=== PATIENT | female | born 1950 | race Caucasian/White ===

== ENCOUNTER 2016-09-03 06:30 | Inpatient (IN) | payer OTHER, MEDICARE ==
[~2016-09-03] VITALS: Ht 157.5 cm; Wt 76.1 kg
[~2016-09-03 06:30] MED LIST: ALPRAZOLAM0.25 M2 PO; AMBIEN10 MG PO; CARISOPRODOL350 MG PO; CYCLOBENZAPRINE10 MG PO; FLEXERIL5 MG PO; FOLIC ACID0.4 MG PO; GABAPENTIN300 MG PO; MAGNESIUM27 MG PO; METOPROLOL TART25 MG PO; NEURONTIN300 MG PO; NEURONTIN600 MG PO; REQUIP0.25 MG PO; ROPINIROLE HC0.25 MG PO; TRAMADOL HCL50 MG PO; TYLENOL REGULA325 MG PO; VITAMIN B12-FO1 EACH PO; XANAX0.25 MG PO; ZOLPIDEM TARTRAT5 MG PO
[2016-09-03 07:01] VITALS: BP 128/71
[2016-09-03 08:14] LABS: AMPHETAMINES QUANT VALUE 0 NG/ML; BARBITUATES QUANT VALUE 0 NG/ML; BENZODIAZEPINES, URINE SCREEN POSITIVE (200 ng/mL); MARIJUANA QUANT VALUE 0 NG/ML; OPIATES QUANTITATIVE VALUE 0 NG/ML; PHENCYCLIDINE QUANT VALUE 0 NG/ML
[2016-09-03 14:13] LABS: HEMATOCRIT 29.1 % (36.0-46.0); MCHC 31.3 G/DL (30.0-36.0); MCV 105.4 FL (83-99); RBC DIS.WIDTH-CV 27.3 % (11.8-14.6); RBC DIS.WIDTH-SD 101.4 % (39-53); RED BLOOD COUNT 2.76 M/uL (3.80-5.20)
[2016-09-03 14:54] VITALS: BP 129/62
[2016-09-03 15:00] LABS: PLATELET COUNT 112 K/uL (156-360)
[2016-09-03 19:12] VITALS: BP 137/65
[2016-09-03 23:31] VITALS: BP 142/68
[2016-09-04 03:46] VITALS: BP 150/71
[2016-09-04 07:49] LABS: HEMATOCRIT 29.3 % (36.0-46.0); MCH 32.1 PG (29.0-34.0); MCHC 30.7 G/DL (30.0-36.0); MCV 104.6 FL (83-99); RBC DIS.WIDTH-CV 27.9 % (11.8-14.6); RBC DIS.WIDTH-SD 102.7 % (39-53)
[2016-09-04 07:50] VITALS: BP 146/65
[2016-09-04 07:52] LABS: WHITE BLOOD COUNT 22.8 K/uL (4.1-10.2)
[2016-09-04 08:14] LABS: CORRECTED WBC COUNT 18.5 K/MM^3 (4.0-12.0)
[2016-09-04 08:15] LABS: PLATELET COUNT 166 K/uL (156-360)
[2016-09-04 15:09] VITALS: BP 140/66
[2016-09-04 19:33] VITALS: BP 151/65
[2016-09-04 23:28] VITALS: BP 171/80
[2016-09-05 03:53] VITALS: BP 165/72
[2016-09-05 07:39] VITALS: BP 174/83
[2016-09-05 08:08] LABS: HEMATOCRIT 29.9 % (36.0-46.0); MCHC 31.1 G/DL (30.0-36.0); RBC DIS.WIDTH-CV 27.2 % (11.8-14.6); RED BLOOD COUNT 2.82 M/uL (3.80-5.20); WHITE BLOOD COUNT 22.7 K/uL (4.1-10.2)
[2016-09-05 08:13] VITALS: BP 159/74
[2016-09-05 08:18] LABS: PLATELET COUNT 163 K/uL (156-360)
[2016-09-05 12:06] VITALS: BP 164/77
[2016-09-05 16:05] VITALS: BP 152/80
[2016-09-05 20:00] VITALS: BP 156/75
[2016-09-06] VITALS (11 sets, daily range): BP systolic 125–175; BP diastolic 73–94
[2016-09-06 07:11] LABS: ANION GAP 7 MEQ/L (2-14); CHLORIDE 101 MEQ/L (99-109); GFR ESTIMATE (CALCULATED) > 59 mL/min/; GLUCOSE 109 mg/dL (70-99); POTASSIUM 3.9 MEQ/L (3.7-5.4); SAMPLE HEMOLYSIS CHECK 0; SAMPLE ICTERIC CHECK 0; SAMPLE LIPEMIA CHECK 0; SODIUM 138 MEQ/L (136-147); UREA NITROGEN (BUN) 5 mg/dL (9-23)
[2016-09-06 07:22] LABS: HEMATOCRIT 28.8 % (36.0-46.0); MCH 32.2 PG (29.0-34.0); MCHC 30.6 G/DL (30.0-36.0); MCV 105.5 FL (83-99); RBC DIS.WIDTH-SD 99.8 % (39-53); RED BLOOD COUNT 2.73 M/uL (3.80-5.20); WHITE BLOOD COUNT 20.1 K/uL (4.1-10.2)
[2016-09-06 07:40] LABS: PLATELET COUNT 169 K/uL (156-360)
[2016-09-06 10:34] LABS: HEMATOCRIT 31.3 % (36.0-46.0); MCV 107.6 FL (83-99)
[2016-09-06 10:58] LABS: TROP-I INTERPRETATION NEGATIVE; TROPONIN-I 0.01 ng/mL (0.0-0.30)
[2016-09-06 18:14] LABS: BASE EXCESS 5.5 mEq/L (-3 to +3); BICARBONATE 30.5 mEq/L (22-26); CARBOXY HGB 2.5 % (0-5); COMMENTS - BLOOD GASES AC+; DEVICE NASAL CANNULA; O2 FLOW 3.5 L/MIN; PCO2 46 mm Hg (35-45); PO2 61 mm Hg (80-100); SITE LR; TOTAL RESP RATE 24 resp/min; pH 7.43 (7.35-7.45)
[2016-09-07] VITALS (16 sets, daily range): BP systolic 90–147; BP diastolic 42–72
[2016-09-07 02:32] LABS: BASE EXCESS 8.2 mEq/L (-3 to +3); BICARBONATE 32.8 mEq/L (22-26); CARBOXY HGB 2.4 % (0-5); PCO2 45 mm Hg (35-45); PO2 70 mm Hg (80-100); pH 7.47 (7.35-7.45)
[2016-09-07 02:33] LABS: COMMENTS - BLOOD GASES C+A+; DEVICE VENTI MASK; FI02 50 %; O2 FLOW 12 L/MIN; SITE RR; TOTAL RESP RATE 26 resp/min
[2016-09-07 03:06] LABS: TROP-I INTERPRETATION NEGATIVE; TROPONIN-I 0.16 ng/mL (0.0-0.30)
[2016-09-07 03:35] LABS: METH RESISTANT S AUREUS PCR NEGATIVE (NEGATIVE)
[2016-09-07 03:43] LABS: PROBE CHECK PASS; SPECIMEN PROCESSING CONTROL PASS
[2016-09-07 05:49] LABS: ADD MIUA? YES; BILIRUBIN NEGATIVE; BLOOD TRACE; COLOR YELLOW ((YELLOW)); GLUCOSE (STRIP) NEGATIVE; KETONES NEGATIVE; LEUKOCYTES NEGATIVE; NITRITE NEGATIVE; PH, URINE 5.5 (5-8); PROTEIN (STRIP) 30; SPECIFIC GRAVITY 1.036 (1.000-1.030)
[2016-09-07 06:04] LABS: RED BLOOD CELLS 0-5 /HPF (0-5); WHITE BLOOD CELLS 0-5 /HPF (0-5)
[2016-09-07 06:05] LABS: BACTERIA RARE; CASTS NONE SEEN /LPF; CRYSTALS NONE SEEN; EPITHELIAL CELLS RARE; MUCUS NONE SEEN; UCUL ADDED? NO
[2016-09-07 06:44] LABS: ANION GAP 10 MEQ/L (2-14); CHLORIDE 100 MEQ/L (99-109); GFR ESTIMATE (CALCULATED) > 59 mL/min/; GLUCOSE 109 mg/dL (70-99); SAMPLE HEMOLYSIS CHECK 0; SAMPLE ICTERIC CHECK 0; SAMPLE LIPEMIA CHECK 0; SODIUM 138 MEQ/L (136-147); TROP-I INTERPRETATION NEGATIVE; TROPONIN-I 0.26 ng/mL (0.0-0.30); UREA NITROGEN (BUN) 8 mg/dL (9-23)
[2016-09-07 06:50] LABS: HEMATOCRIT 28.3 % (36.0-46.0); MCH 32.5 PG (29.0-34.0); MCHC 30.7 G/DL (30.0-36.0); MCV 105.6 FL (83-99); RBC DIS.WIDTH-CV 26.6 % (11.8-14.6); RED BLOOD COUNT 2.68 M/uL (3.80-5.20); WHITE BLOOD COUNT 19.1 K/uL (4.1-10.2)
[2016-09-07 07:15] LABS: PLATELET COUNT 170 K/uL (156-360)
[2016-09-07 12:47] LABS: TROP-I INTERPRETATION NEGATIVE; TROPONIN-I 0.29 ng/mL (0.0-0.30)
[2016-09-07 18:39] LABS: TROP-I INTERPRETATION POSITIVE
[2016-09-07 18:48] LABS: TROPONIN-I 0.62 ng/mL (0.0-0.30)
[2016-09-08] VITALS (13 sets, daily range): BP systolic 80–146; BP diastolic 33–76
[2016-09-08 06:30] LABS: HEMATOCRIT 25.4 % (36.0-46.0); MCH 32.4 PG (29.0-34.0); MCHC 31.1 G/DL (30.0-36.0); MCV 104.1 FL (83-99); RBC DIS.WIDTH-CV 27.4 % (11.8-14.6); RBC DIS.WIDTH-SD 98.4 % (39-53); RED BLOOD COUNT 2.44 M/uL (3.80-5.20)
[2016-09-08 06:32] LABS: WHITE BLOOD COUNT 11.9 K/uL (4.1-10.2)
[2016-09-08 06:48] LABS: PLATELET COUNT 187 K/uL (156-360)
[2016-09-08 07:39] LABS: HDL CHOLESTEROL 25 MG/DL (Desirable>=50); LDL CHOLESTEROL 78 mg/dL (Desirable<100); NON-HDL CHOLESTEROL 118 mg/dL (Desirable<160); TOTAL CHOLESTEROL 143 mg/dL (Desirable<200); TRIGLYCERIDES 199 MG/DL (Normal: <150)
[2016-09-09 04:09] VITALS: BP 133/70
[2016-09-09 07:23] VITALS: BP 120/57
[2016-09-09 07:32] LABS: ANION GAP 10 MEQ/L (2-14); CHLORIDE 105 MEQ/L (99-109); GFR ESTIMATE (CALCULATED) > 59 mL/min/; GLUCOSE 126 mg/dL (70-99); POTASSIUM 4.5 MEQ/L (3.7-5.4); SAMPLE HEMOLYSIS CHECK 0; SAMPLE ICTERIC CHECK 0; SAMPLE LIPEMIA CHECK 0; SODIUM 143 MEQ/L (136-147)
[2016-09-09 07:38] LABS: MAGNESIUM 2.6 mg/dl (1.3-2.7); UREA NITROGEN (BUN) 30 mg/dL (9-23)
[2016-09-09 08:02] LABS: HEMATOCRIT 27.9 % (36.0-46.0); MCH 31.4 PG (29.0-34.0); MCHC 30.5 G/DL (30.0-36.0); RBC DIS.WIDTH-CV 28.5 % (11.8-14.6); RBC DIS.WIDTH-SD 101.4 % (39-53); RED BLOOD COUNT 2.71 M/uL (3.80-5.20); WHITE BLOOD COUNT 14.4 K/uL (4.1-10.2)
[2016-09-09 10:28] LABS: PLATELET COUNT 294 K/uL (156-360)
[2016-09-09 12:00] VITALS: BP 124/62
[2016-09-09 15:57] VITALS: BP 155/80
[2016-09-09 20:07] VITALS: BP 153/77
[2016-09-10 04:03] VITALS: BP 146/76
[2016-09-10 07:39] LABS: ANION GAP 11 MEQ/L (2-14); CHLORIDE 103 MEQ/L (99-109); GFR ESTIMATE (CALCULATED) > 59 mL/min/; GLUCOSE 106 mg/dL (70-99); MAGNESIUM 2.6 mg/dl (1.3-2.7); SAMPLE HEMOLYSIS CHECK 0; SAMPLE ICTERIC CHECK 0; SAMPLE LIPEMIA CHECK 0; SODIUM 142 MEQ/L (136-147); UREA NITROGEN (BUN) 36 mg/dL (9-23)
[2016-09-10 07:40] LABS: POTASSIUM 3.5 MEQ/L (3.7-5.4)
[2016-09-10 07:43] VITALS: BP 144/85
[2016-09-10 08:17] LABS: HEMATOCRIT 30.2 % (36.0-46.0); MCH 30.4 PG (29.0-34.0); MCHC 29.1 G/DL (30.0-36.0); MCV 104.5 FL (83-99); RBC DIS.WIDTH-CV 29.4 % (11.8-14.6); RBC DIS.WIDTH-SD 105.7 % (39-53); RED BLOOD COUNT 2.89 M/uL (3.80-5.20); WHITE BLOOD COUNT 13.3 K/uL (4.1-10.2)
[2016-09-10 09:35] LABS: ABS NEUTROPHIL COUNT 10.63; ANISOCYTOSIS 2+; HYPOCHROMASIA 2+; MACROCYTES 2+; PLAT.SUFFICIENCY INCREASED; PLATELET CLUMPS PRESENT; PLATELET COUNT UNABLE TO REPORT K/uL (156-360); TEAR DROP CELLS RARE
[2016-09-10 09:46] LABS: DELETE MACHINE DIFF? YES
[2016-09-10 11:31] VITALS: BP 143/77
[2016-09-10 15:00] VITALS: BP 138/75
[2016-09-10 20:00] VITALS: BP 155/78
[2016-09-11] VITALS: BP 153/81
[2016-09-11 04:00] VITALS: BP 155/85
[2016-09-11 05:11] LABS: CHLORIDE 106 mEq/L (99-109); SODIUM 140 mEq/L (136-147)
[2016-09-11 05:12] LABS: GLUCOSE 146 mg/dL (70-99)
[2016-09-11 05:14] LABS: ANION GAP 9 MEQ/L (2-14)
[2016-09-11 05:16] LABS: GFR ESTIMATE (CALCULATED) > 59 mL/min/
[2016-09-11 05:17] LABS: UREA NITROGEN (BUN) 29 mg/dL (9-23)
[2016-09-11 05:20] LABS: POTASSIUM 4.8 mEq/L (3.7-5.4)
[2016-09-11 07:13] VITALS: BP 160/77
[2016-09-11 07:18] LABS: INTER. NORMALIZED RATIO 1.3; PTT 25.2 (25-32)
[2016-09-11 12:35] VITALS: BP 155/78
[2016-09-11 12:58] LABS: TYPE OF FLUID PLEURAL
[2016-09-11 14:15] LABS: BODY FLUID RBC'S 11000 /MM^3 (0-100); BODY FLUID WBC'S 790 /MM^3 (0-500); WHITE CELL RAW COUNT 632
[2016-09-11 14:26] LABS: BODY FLUID LDH 220 IU/L
[2016-09-11 14:39] LABS: BODY FLUID EOSINOPHILS 0 % (0-25); MONO RAW COUNT 97; MONONUCLEAR WBC'S 97 %; POLY RAW COUNT 3; POLYNUCLEAR WBC'S 3 % (0-25)
[2016-09-11 14:53] LABS: BODY FLUID PROTEIN < 3.0 G/DL
[2016-09-11 16:30] VITALS: BP 159/71
[2016-09-11 20:00] VITALS: BP 155/89
[2016-09-12] VITALS: BP 132/79
[2016-09-12 03:28] VITALS: BP 142/76
[2016-09-12 06:46] LABS: ANION GAP 10 MEQ/L (2-14); CHLORIDE 103 MEQ/L (99-109); GFR ESTIMATE (CALCULATED) > 59 mL/min/; POTASSIUM 4.8 MEQ/L (3.7-5.4); SAMPLE HEMOLYSIS CHECK 0; SAMPLE ICTERIC CHECK 0; SAMPLE LIPEMIA CHECK 0; SODIUM 141 MEQ/L (136-147); UREA NITROGEN (BUN) 26 mg/dL (9-23)
[2016-09-12 06:50] LABS: GLUCOSE 107 mg/dL (70-99)
[2016-09-12 07:07] LABS: HEMATOCRIT 29.8 % (36.0-46.0); MCH 30.7 PG (29.0-34.0); MCHC 29.5 G/DL (30.0-36.0); MCV 103.8 FL (83-99); RBC DIS.WIDTH-CV 29.5 % (11.8-14.6); RBC DIS.WIDTH-SD 108.3 % (39-53); RED BLOOD COUNT 2.87 M/uL (3.80-5.20)
[2016-09-12 07:15] LABS: WHITE BLOOD COUNT 21.6 K/uL (4.1-10.2)
[2016-09-12 07:25] VITALS: BP 151/77
[2016-09-12 08:50] LABS: PLATELET COUNT 343 K/uL (156-360)
[2016-09-12 12:15] VITALS: BP 154/73
[2016-09-12 15:48] VITALS: BP 159/73
[2016-09-12 20:18] VITALS: BP 155/84
[2016-09-13 00:34] VITALS: BP 124/58
[2016-09-13 04:15] VITALS: BP 133/67
[2016-09-13 07:28] LABS: ANION GAP 8 MEQ/L (2-14); CHLORIDE 103 MEQ/L (99-109); GFR ESTIMATE (CALCULATED) > 59 mL/min/; GLUCOSE 113 mg/dL (70-99); POTASSIUM 4.1 MEQ/L (3.7-5.4); SAMPLE HEMOLYSIS CHECK 0; SAMPLE ICTERIC CHECK 0; SAMPLE LIPEMIA CHECK 0; SODIUM 137 MEQ/L (136-147); UREA NITROGEN (BUN) 25 mg/dL (9-23)
[2016-09-13 08:23] LABS: ABS NEUTROPHIL COUNT 18.51; ANISOCYTOSIS 2+; HEMATOCRIT 27.7 % (36.0-46.0); HYPOCHROMASIA 1+; MACROCYTES 2+; MCH 30.7 PG (29.0-34.0); MCV 102.6 FL (83-99); OVALOCYTES OCC; PLAT.SUFFICIENCY INCREASED; PLATELET COUNT 438 K/uL (156-360); POLYCHROMASIA 1+; TARGET CELLS OCC; USER ID CL; WHITE BLOOD COUNT 20.3 K/uL (4.1-10.2)
[2016-09-13 08:27] LABS: DELETE MACHINE DIFF? YES
[2016-09-13 08:49] VITALS: BP 155/85
[2016-09-13 12:47] VITALS: BP 137/75
[2016-09-13 16:58] VITALS: BP 153/80
[2016-09-13 20:00] VITALS: BP 149/78
[2016-09-14 00:46] VITALS: BP 155/79
[2016-09-14 04:06] VITALS: BP 138/89
[2016-09-14 07:44] VITALS: BP 154/89
[2016-09-14 11:36] VITALS: BP 155/67
[2016-09-14 11:50] LABS: BODY FLUID PH 8.2 (())
[2016-09-14 15:21] VITALS: BP 134/69
[2016-09-14 19:34] VITALS: BP 133/61
[2016-09-15 00:20] VITALS: BP 167/73
[2016-09-15 04:29] VITALS: BP 159/70
[2016-09-15 08:06] VITALS: BP 136/63
[2016-09-15 11:09] VITALS: BP 144/77
[2016-09-15 15:13] VITALS: BP 123/72
[2016-09-15 20:00] VITALS: BP 140/87
[2016-09-16] VITALS (7 sets, daily range): BP systolic 129–150; BP diastolic 63–80
[2016-09-16] MEDS ORDERED: PERCOCET 5/31 TABLET PO (10:15)
[2016-09-16] MEDS ORDERED: DUONEB 2.5-0.5 M3 ML AEROSOL (10:27)
[2016-09-16] MEDS ORDERED: METOPROLOL TART25 MG PO (10:30)
[2016-09-16] MEDS ORDERED: SPIRIVA RESPIMAT4 GM IH (10:30)
[2016-09-16] MEDS ORDERED: COLACE100 MG PO (10:30)
[2016-09-16] MEDS ORDERED: ASPIRIN325 MG PO (10:30)
[2016-09-16] MEDS ORDERED: ADVAIR HFA120 INHALA IH (10:30)
[2016-09-16] MEDS ORDERED: ATORVASTATIN CA80 MG PO (10:30)
[2016-09-16 10:51] LABS: HEMATOCRIT 30.8 % (36.0-46.0); MCH 30.9 PG (29.0-34.0); MCHC 29.9 G/DL (30.0-36.0); MCV 103.4 FL (83-99); RBC DIS.WIDTH-SD 109.7 % (39-53); RED BLOOD COUNT 2.98 M/uL (3.80-5.20)
[2016-09-16 11:10] LABS: PLATELET COUNT 423 K/uL (156-360)
[2016-09-16 11:36] LABS: ANION GAP 10 MEQ/L (2-14); CHLORIDE 102 MEQ/L (99-109); POTASSIUM 4.1 MEQ/L (3.7-5.4); SAMPLE HEMOLYSIS CHECK 0; SAMPLE ICTERIC CHECK 0; SAMPLE LIPEMIA CHECK 0; SODIUM 137 MEQ/L (136-147)
[2016-09-16 11:42] LABS: GFR ESTIMATE (CALCULATED) > 59 mL/min/; GLUCOSE 131 mg/dL (70-99); UREA NITROGEN (BUN) 25 mg/dL (9-23)
[2016-09-17 04:48] VITALS: BP 143/69
[2016-09-17 07:49] LABS: HEMATOCRIT 25.9 % (36.0-46.0); MCH 30.2 PG (29.0-34.0); MCHC 29.7 G/DL (30.0-36.0); MCV 101.6 FL (83-99); RBC DIS.WIDTH-CV 30.2 % (11.8-14.6); RBC DIS.WIDTH-SD 106.5 % (39-53); RED BLOOD COUNT 2.55 M/uL (3.80-5.20)
[2016-09-17 07:54] LABS: WHITE BLOOD COUNT 32.1 K/uL (4.1-10.2)
[2016-09-17 08:18] VITALS: BP 136/63
[2016-09-17 09:02] LABS: PLATELET COUNT 407 K/uL (156-360)
[2016-09-17] MEDS ORDERED: PREDNISONE10 MG PO (09:08)
[2016-09-17] MEDS ORDERED: IRON325 MG PO (09:08)
[2016-09-18] MEDS ORDERED: DUONEB 2.5-0.5 M3 ML AEROSOL (00:38)
[2016-09-18] MEDS ORDERED: SPIRIVA RESPIMAT4 GM IH (00:38)
[2016-09-18] MEDS ORDERED: ATORVASTATIN CA80 MG PO (00:39)
[2016-09-18] MEDS ORDERED: METOPROLOL TART25 MG PO (00:39)
[2016-09-18] MEDS ORDERED: LITE COAT ASPI325 M1 PO (00:40)
[2016-09-18] MEDS ORDERED: ADVAIR HFA120 INHALA IH (00:40)
[2016-09-18] MEDS ORDERED: COLACE100 MG PO (00:40)
[2016-09-18] MEDS ORDERED: FERROUS SULFAT325 MG PO (00:41)
[2016-09-18] MEDS ORDERED: APLISOL5 TUB UNIT ID (00:42)
[2016-09-18] MEDS ORDERED: PREDNISONE10 MG PO ×3 (00:42→00:45)
[2016-09-18] MEDS ORDERED: TYLENOL REGULA325 MG PO (00:47)
[2016-09-18] MEDS ORDERED: PERCOCET 5/31 TABLET PO (00:48)
[2016-09-18] MEDS ORDERED: MAGNESIUM 300300 MG PO (00:49)
== END 2016-09-17 12:09 | DRG 799 ==
LOC: SDC 06:30 → 2SOUTH 09:34 → EDSTATUS 09:45 → SDC 09:45 → 4WEST 11:30 → 4EAST 11:30 → 5SOUTH 11:30 → 2SOUTH 11:30 → 2EAST 11:30 → 4WEST 09-07 02:12 → 5SOUTH 09-08 20:11 → 4EAST 09-10 14:37 → 5SOUTH 09-12 19:34
PROVIDERS: Emergency Medicine; Hospitalist; Internal Medicine; Internal Medicine Cardiovascular Disease; Physician Assistant Medical; Radiology Diagnostic Radiology; Surgery
PROC: 07TP0ZZ Resection of Spleen, Open Approach (ICD-10-PCS; principal; 2016-09-03)
PROC: 0W993ZZ Drainage of Right Pleural Cavity, Percutaneous Approach (ICD-10-PCS; 2016-09-11)
DX: R16.1 Splenomegaly, not elsewhere classified (principal); J96.01 Acute respiratory failure with hypoxia; I63.9 Cerebral infarction, unspecified; J18.9 Pneumonia, unspecified organism; I47.1 Supraventricular tachycardia; G37.3 Acute transverse myelitis in demyelinating disease of central nervous system; J44.1 Chronic obstructive pulmonary disease with (acute) exacerbation; G82.20 Paraplegia, unspecified; M32.9 Systemic lupus erythematosus, unspecified; G62.9 Polyneuropathy, unspecified; J98.11 Atelectasis; E83.9 Disorder of mineral metabolism, unspecified; K21.9 Gastro-esophageal reflux disease without esophagitis; F41.9 Anxiety disorder, unspecified; D72.829 Elevated white blood cell count, unspecified; G25.81 Restless legs syndrome; Z96.642 Presence of left artificial hip joint; Z90.81 Acquired absence of spleen; Z85.3 Personal history of malignant neoplasm of breast; Z87.891 Personal history of nicotine dependence; Y95 Nosocomial condition
CPT/HCPCS: 36600; 70450; 70551; 71010; 71020; 71275; 80048; 80061; 81003; 82607; 82746; 82803; 82945; 83615 91; 83735; 83880; 83986 90; 84100; 84157; 84484; 85014; 85018; 85025; 85027; 85610; 85730; 87040; 87070; 87205; 87641; 88108; 88305; 89051; 92523 GN; 92526 GN; 92610 GN; 93005; 93306; 93880; 94010; 94640; 94640 76; 94667; 94668; 94760; 94799; 97530 GP; 97532 GN; G0478; G0480; J0153; J0330; J0690; J1100; J1170; J1200; J1650; J1940; J1956; J2060; J2250; J2270; J2405; J2543; J2710; J2930; J3010; J7050; J7120; J7512; P9016

== ENCOUNTER 2016-09-17 20:31 | Inpatient (IN) | payer OTHER, MEDICARE ==
[~2016-09-17] VITALS: Ht 157.5 cm; Wt 69.9 kg
[~2016-09-17 20:31] MED LIST changes: +ADVAIR HFA120 INHALA IH; +ASPIRIN325 MG PO; +ATORVASTATIN CA80 MG PO; +COLACE100 MG PO; +DUONEB 2.5-0.5 M3 ML AEROSOL; +IRON325 MG PO; +PERCOCET 5/31 TABLET PO; +PREDNISONE10 MG PO; +SPIRIVA RESPIMAT4 GM IH
[2016-09-17 21:37] LABS: HEMATOCRIT 21.7 % (36.0-46.0); MCH 31.4 PG (29.0-34.0); MCV 104.8 FL (83-99); RBC DIS.WIDTH-CV 29.5 % (11.8-14.6); RED BLOOD COUNT 2.07 M/uL (3.80-5.20)
[2016-09-17 21:48] LABS: WHITE BLOOD COUNT 36.2 K/uL (4.1-10.2)
[2016-09-17 22:10] LABS: INTER. NORMALIZED RATIO 1.3; PROTHROMBIN TIME 13.6 (9.2-11.2)
[2016-09-17 22:18] LABS: PATIENT NRBC 27
[2016-09-17 22:21] LABS: CORRECTED WBC COUNT 28.5 K/MM^3 (4.0-12.0); PATIENT WBC 36.2
[2016-09-17 22:23] LABS: ABS NEUTROPHIL COUNT 25.32; ANISOCYTOSIS 2+; EOSINOPHIL ABS CT 0.72; HYPOCHROMASIA 3+; MICROCYTOSIS 1+; PLAT.SUFFICIENCY ADEQUATE; PLATELET COUNT 326 K/uL (156-360); POLYCHROMASIA FEW; SCHISTOCYTES 2+
[2016-09-17 22:25] LABS: DELETE MACHINE DIFF? YES
[2016-09-17 22:38] LABS: CHLORIDE 105 mEq/L (99-109); POTASSIUM 4.8 mEq/L (3.7-5.4); SODIUM 139 mEq/L (136-147)
[2016-09-17 22:40] LABS: GLUCOSE 141 mg/dL (70-99)
[2016-09-17 22:41] LABS: ANION GAP 10 MEQ/L (2-14)
[2016-09-17 22:42] LABS: TOTAL BILIRUBIN 1.3 mg/dL (0.0-1.0)
[2016-09-17 22:44] LABS: ALKALINE PHOSPHATASE 185 IU/L (3-129); GFR ESTIMATE (CALCULATED) > 59 mL/min/
[2016-09-17 22:45] LABS: UREA NITROGEN (BUN) 31 mg/dL (9-23)
[2016-09-17 23:29] VITALS: BP 109/69
[2016-09-17 23:50] VITALS: BP 99/58
[2016-09-18] VITALS (9 sets, daily range): BP systolic 115–145; BP diastolic 59–69
[2016-09-18] MEDS ORDERED: DUONEB 2.5-0.5 M3 ML AEROSOL (00:38)
[2016-09-18] MEDS ORDERED: SPIRIVA RESPIMAT4 GM IH (00:38)
[2016-09-18] MEDS ORDERED: ATORVASTATIN CA80 MG PO (00:39)
[2016-09-18] MEDS ORDERED: METOPROLOL TART25 MG PO (00:39)
[2016-09-18] MEDS ORDERED: COLACE100 MG PO (00:40)
[2016-09-18] MEDS ORDERED: LITE COAT ASPI325 M1 PO (00:40)
[2016-09-18] MEDS ORDERED: ADVAIR HFA120 INHALA IH (00:40)
[2016-09-18] MEDS ORDERED: FERROUS SULFAT325 MG PO (00:41)
[2016-09-18] MEDS ORDERED: APLISOL5 TUB UNIT ID (00:42)
[2016-09-18] MEDS ORDERED: PREDNISONE10 MG PO ×3 (00:42→00:45)
[2016-09-18] MEDS ORDERED: TYLENOL REGULA325 MG PO (00:47)
[2016-09-18] MEDS ORDERED: PERCOCET 5/31 TABLET PO (00:48)
[2016-09-18] MEDS ORDERED: MAGNESIUM 300300 MG PO (00:49)
[2016-09-18 05:29] LABS: GLUCOSE (STRIP) NEGATIVE; KETONES NEGATIVE
[2016-09-18 06:40] LABS: ADD MIUA? YES; BILIRUBIN NEGATIVE; BLOOD LARGE; COLOR YELLOW ((YELLOW)); LEUKOCYTES SMALL; NITRITE NEGATIVE; PH, URINE 5.5 (5-8); PROTEIN (STRIP) TRACE; SPECIFIC GRAVITY 1.051 (1.000-1.030); UROBILINOGEN 0.2 MG/DL (0.2-1.0)
[2016-09-18 07:05] LABS: HEMATOCRIT 28.3 % (36.0-46.0); MCH 29.4 PG (29.0-34.0); MCHC 30.4 G/DL (30.0-36.0); RBC DIS.WIDTH-CV 25.6 % (11.8-14.6); RBC DIS.WIDTH-SD 77.9 % (39-53)
[2016-09-18 07:06] LABS: HYALINE CASTS 0-5 /LPF
[2016-09-18 07:07] LABS: BACTERIA RARE; CASTS PRESENT /LPF; CRYSTALS NONE SEEN; EPITHELIAL CELLS RARE; MUCUS 1+; UCUL ADDED? NO
[2016-09-18 07:17] LABS: MCV 96.6 FL (83-99); RED BLOOD COUNT 2.93 M/uL (3.80-5.20); WHITE BLOOD COUNT 33.9 K/uL (4.1-10.2)
[2016-09-18 07:31] LABS: CORRECTED WBC COUNT 26.3 K/MM^3 (4.0-12.0); PATIENT NRBC 29; PATIENT WBC 33.9; PLATELET COUNT 293 K/uL (156-360)
[2016-09-18 20:50] LABS: HEMATOLOGY COMMENT 1 SMEAR COMPATIBLE
[2016-09-18 20:51] LABS: HEMATOCRIT 26.5 % (36.0-46.0); MCH 29.6 PG (29.0-34.0); MCHC 30.6 G/DL (30.0-36.0); MCV 96.7 FL (83-99); PLATELET COUNT 322 K/uL (156-360); RBC DIS.WIDTH-SD 82.7 % (39-53); RED BLOOD COUNT 2.74 M/uL (3.80-5.20); WHITE BLOOD COUNT 34.2 K/uL (4.1-10.2)
[2016-09-19 00:21] VITALS: BP 139/64
[2016-09-19 04:25] VITALS: BP 150/66
[2016-09-19 08:24] LABS: HEMATOCRIT 25.3 % (36.0-46.0); MCH 29.5 PG (29.0-34.0); MCV 98.1 FL (83-99); MEAN PLAT.VOLUME 13.1 uM^3 (9.5-12.4); PLATELET COUNT 301 K/uL (156-360); RBC DIS.WIDTH-CV 26.9 % (11.8-14.6); RBC DIS.WIDTH-SD 86.8 % (39-53); RED BLOOD COUNT 2.58 M/uL (3.80-5.20); WHITE BLOOD COUNT 32.9 K/uL (4.1-10.2)
[2016-09-19 13:35] VITALS: BP 144/73
[2016-09-19 17:40] VITALS: BP 136/62
[2016-09-19 18:54] VITALS: BP 152/70
[2016-09-19 22:29] VITALS: BP 158/68
[2016-09-20 03:34] VITALS: BP 151/69
[2016-09-20 07:44] VITALS: BP 138/64
[2016-09-20 10:43] LABS: HEMATOCRIT 26.1 % (36.0-46.0); MCH 29.8 PG (29.0-34.0); MCHC 29.9 G/DL (30.0-36.0); MCV 99.6 FL (83-99); RBC DIS.WIDTH-CV 26.1 % (11.8-14.6); RBC DIS.WIDTH-SD 86.5 % (39-53); RED BLOOD COUNT 2.62 M/uL (3.80-5.20); WHITE BLOOD COUNT 29.3 K/uL (4.1-10.2)
[2016-09-20 10:58] LABS: PLATELET COUNT 244 K/uL (156-360)
[2016-09-20 18:00] VITALS: BP 132/62
[2016-09-20 19:07] VITALS: BP 153/69
[2016-09-20 23:11] VITALS: BP 138/70
[2016-09-21 03:47] VITALS: BP 139/63
[2016-09-21 07:20] VITALS: BP 136/65
[2016-09-21 12:00] VITALS: BP 125/58
[2016-09-21 13:57] LABS: TYPE OF FLUID PARACENTESIS
[2016-09-21 14:35] LABS: BODY FLUID RBC'S 1000 /MM^3 (0-100); BODY FLUID WBC'S 67 /MM^3 (0-500)
[2016-09-21 14:36] LABS: BODY FLUID EOSINOPHILS 0 % (0-25); MONO RAW COUNT 92; MONONUCLEAR WBC'S 92 %; POLY RAW COUNT 8; POLYNUCLEAR WBC'S 8 % (0-25)
[2016-09-21 15:49] VITALS: BP 137/64
[2016-09-21 19:35] VITALS: BP 132/62
[2016-09-22 00:57] VITALS: BP 160/66
[2016-09-22 05:02] VITALS: BP 149/63
[2016-09-22 07:40] VITALS: BP 157/69
[2016-09-22 11:15] VITALS: BP 125/57
[2016-09-22 16:00] VITALS: BP 131/63
== END 2016-09-22 18:16 | DRG 377 ==
LOC: EME 20:31 → EDOF 09-18 03:14 → 4EAST 09-18 03:14
PROVIDERS: Emergency Medicine; Internal Medicine; Surgery
PROC: 30233N1 Transfusion of Nonautologous Red Blood Cells into Peripheral Vein, Percutaneous Approach (ICD-10-PCS; 2016-09-18)
PROC: 0DJD8ZZ Inspection of Lower Intestinal Tract, Via Natural or Artificial Opening Endoscopic (ICD-10-PCS; principal; 2016-09-21)
PROC: 0W9G3ZX Drainage of Peritoneal Cavity, Percutaneous Approach, Diagnostic (ICD-10-PCS; 2016-09-21)
DX: K57.91 Diverticulosis of intestine, part unspecified, without perforation or abscess with bleeding (principal); R18.8 Other ascites; K76.6 Portal hypertension; I81 Portal vein thrombosis; I82.890 Acute embolism and thrombosis of other specified veins; K64.8 Other hemorrhoids; K64.4 Residual hemorrhoidal skin tags; D64.9 Anemia, unspecified; R33.9 Retention of urine, unspecified; G37.3 Acute transverse myelitis in demyelinating disease of central nervous system; I69.354 Hemiplegia and hemiparesis following cerebral infarction affecting left non-dominant side; I10 Essential (primary) hypertension; Z99.81 Dependence on supplemental oxygen; Z85.3 Personal history of malignant neoplasm of breast; Z90.81 Acquired absence of spleen; Z96.642 Presence of left artificial hip joint; Z87.891 Personal history of nicotine dependence
CPT/HCPCS: 74177; 80053; 81003; 83605; 85025; 85027; 85610; 86850; 86900; 86901; 86920; 87040; 87070; 87205; 89051; 94799; 99281; 99285; J2270; J2405; J3010; J7120; P9016; P9040; S0030

== ENCOUNTER 2016-10-18 08:46 | Inpatient (IN) | payer OTHER, MEDICARE ==
[~2016-10-18] VITALS: Ht 157.5 cm; Wt 67.0 kg
[2016-10-18] VITALS (8 sets, daily range): BP systolic 107–120; BP diastolic 56–65
[~2016-10-18 08:46] MED LIST changes: +APLISOL5 TUB UNIT ID; +FERROUS SULFAT325 MG PO; +LITE COAT ASPI325 M1 PO; +MAGNESIUM 300300 MG PO
[2016-10-18 10:10] LABS: CHLORIDE 107 mEq/L (99-109); MCH 29.4 PG (29.0-34.0); MCHC 28.6 G/DL (30.0-36.0); MCV 103.7 FL (83-99); MEAN PLAT.VOLUME 12.8 uM^3 (9.5-12.4); POTASSIUM 4.3 mEq/L (3.7-5.4); RBC DIS.WIDTH-CV 30.1 % (11.8-14.6); RBC DIS.WIDTH-SD 89.2 % (39-53); SODIUM 140 mEq/L (136-147)
[2016-10-18 10:11] LABS: PLATELET COUNT 325 K/uL (156-360); RED BLOOD COUNT 1.36 M/uL (3.80-5.20); WHITE BLOOD COUNT 49.6 K/uL (4.1-10.2)
[2016-10-18 10:12] LABS: GLUCOSE 127 mg/dL (70-99)
[2016-10-18 10:13] LABS: ANION GAP 9 MEQ/L (2-14)
[2016-10-18 10:15] LABS: GFR ESTIMATE (CALCULATED) > 59 mL/min/
[2016-10-18 10:16] LABS: UREA NITROGEN (BUN) 21 mg/dL (9-23)
[2016-10-18] MEDS ORDERED: LASIX20 MG PO (15:00)
[2016-10-18] MEDS ORDERED: FLAGYL250 MG PO (15:04)
[2016-10-18] MEDS ORDERED: DULCOLAX10 MG PR (15:06)
[2016-10-18] MEDS ORDERED: FLEET MINERAL133 ML PR (15:07)
[2016-10-18] MEDS ORDERED: FLEXERIL5 MG PO (15:09)
[2016-10-18] MEDS ORDERED: IMODIUM A-D2 M2 PO (15:13)
[2016-10-18] MEDS ORDERED: MILK OF MAGN PO (15:13)
[2016-10-18] MEDS ORDERED: NORCO 5/3251 TABLET PO (15:15)
[2016-10-18 20:40] LABS: C DIFF TOXIN POSITIVE (NEGATIVE)
[2016-10-18 20:47] LABS: PROBE CHECK PASS
[2016-10-18 21:26] LABS: ADD MIUA? YES; BILIRUBIN NEGATIVE; BLOOD MODERATE; COLOR YELLOW ((YELLOW)); GLUCOSE (STRIP) NEGATIVE; KETONES NEGATIVE; LEUKOCYTES SMALL; NITRITE NEGATIVE; PROTEIN (STRIP) NEGATIVE; SPECIFIC GRAVITY 1.012 (1.000-1.030); UROBILINOGEN 0.2 MG/DL (0.2-1.0)
[2016-10-18 21:28] LABS: BACTERIA NONE SEEN /HPF; EPITHELIAL CELLS RARE /HPF; MUCUS TRACE /LPF; UCUL ADDED? NO; WHITE BLOOD CELLS 15-20 /HPF (0-5)
[2016-10-18 22:00] LABS: INTERNAL CONTROL VALID? YES
[2016-10-18 22:40] LABS: ABS NEUTROPHIL COUNT 15.18; ANISOCYTOSIS 2+; BASOPHILS 0.5 %; DELETE MACHINE DIFF? YES; EOSINOPHIL ABS CT 1.85; GIANT PLATELETS 1+; HEMATOCRIT 21.5 % (36.0-46.0); LYMPHOCYTES 7.5 % (15.0-45.0); MACROCYTES 1+; MCH 28.6 PG (29.0-34.0); MCHC 30.7 G/DL (30.0-36.0); MCV 94.7 FL (83-99); MEAN PLAT.VOLUME 13.5 uM^3 (9.5-12.4); MICROCYTOSIS 1+; MYELOCYTES 1.5 %; PLATELET COUNT 285 K/uL (156-360); POLYCHROMASIA 1+; RBC DIS.WIDTH-CV 21.9 % (11.8-14.6); RBC DIS.WIDTH-SD 55.1 % (39-53); RED BLOOD COUNT 2.31 M/uL (3.80-5.20); USER ID VLB; WHITE BLOOD COUNT 20.5 K/uL (4.1-10.2)
[2016-10-19] VITALS (11 sets, daily range): BP systolic 117–148; BP diastolic 56–84
[2016-10-19 07:59] LABS: HEMATOCRIT 21.4 % (36.0-46.0); MCH 30.1 PG (29.0-34.0); MCHC 31.8 G/DL (30.0-36.0); MCV 94.7 FL (83-99); RBC DIS.WIDTH-CV 22.2 % (11.8-14.6); RBC DIS.WIDTH-SD 58.3 % (39-53); RED BLOOD COUNT 2.26 M/uL (3.80-5.20); WHITE BLOOD COUNT 19.9 K/uL (4.1-10.2)
[2016-10-19 19:59] LABS: HEMATOCRIT 29.7 % (36.0-46.0); MCH 29.7 PG (29.0-34.0); MCHC 32.3 G/DL (30.0-36.0); RBC DIS.WIDTH-CV 19.5 % (11.8-14.6); RBC DIS.WIDTH-SD 53.3 % (39-53); WHITE BLOOD COUNT 17.7 K/uL (4.1-10.2)
[2016-10-19 20:12] LABS: MEAN PLAT.VOLUME 13.3 uM^3 (9.5-12.4); PLATELET COUNT 204 K/uL (156-360)
[2016-10-19 21:03] LABS: RED BLOOD COUNT 3.23 M/uL (3.80-5.20)
[2016-10-20 00:12] VITALS: BP 126/60
[2016-10-20 04:43] VITALS: BP 140/67
[2016-10-20 07:11] LABS: HEMATOCRIT 29.2 % (36.0-46.0); MCH 29.7 PG (29.0-34.0); MCHC 32.2 G/DL (30.0-36.0); MCV 92.1 FL (83-99); RBC DIS.WIDTH-CV 20.1 % (11.8-14.6); RED BLOOD COUNT 3.17 M/uL (3.80-5.20)
[2016-10-20 07:14] LABS: WHITE BLOOD COUNT 33.2 K/uL (4.1-10.2)
[2016-10-20 08:05] VITALS: BP 144/67
[2016-10-20 11:20] VITALS: BP 127/62
[2016-10-20 15:15] VITALS: BP 137/69
[2016-10-20 23:54] VITALS: BP 140/78
[2016-10-21 04:00] VITALS: BP 134/79
[2016-10-21 08:09] LABS: ALKALINE PHOSPHATASE 140 IU/L (3-129); ANION GAP 10 MEQ/L (2-14); CHLORIDE 109 MEQ/L (99-109); GFR ESTIMATE (CALCULATED) > 59 mL/min/; POTASSIUM 3.5 MEQ/L (3.7-5.4); SAMPLE HEMOLYSIS CHECK 0; SAMPLE ICTERIC CHECK 0; SAMPLE LIPEMIA CHECK 0; SODIUM 142 MEQ/L (136-147); TOTAL BILIRUBIN 1.3 MG/DL (0.0-1.0); UREA NITROGEN (BUN) 4 mg/dL (9-23)
[2016-10-21 08:10] LABS: GLUCOSE 94 mg/dL (70-99)
[2016-10-21 08:52] LABS: HEMATOCRIT 30.3 % (36.0-46.0); MCH 29.8 PG (29.0-34.0); MCV 93.2 FL (83-99); RBC DIS.WIDTH-CV 20.6 % (11.8-14.6); RED BLOOD COUNT 3.25 M/uL (3.80-5.20); WHITE BLOOD COUNT 24.8 K/uL (4.1-10.2)
[2016-10-21 11:33] LABS: PLATELET COUNT 132 K/uL (156-360)
[2016-10-21 11:56] VITALS: BP 125/69
[2016-10-21 16:40] VITALS: BP 127/60
[2016-10-21 18:12] LABS: Flow Clinical Information NOT PROVIDED (()); Flow Number of Markers 22 (()); Flow Spec Viability 99 % (()); Flow Specimen Type PERIPHERAL BLOOD (())
[2016-10-22 00:01] VITALS: BP 120/60
[2016-10-22 06:35] LABS: ALKALINE PHOSPHATASE 126 IU/L (3-129); ANION GAP 8 MEQ/L (2-14); CHLORIDE 109 MEQ/L (99-109); GFR ESTIMATE (CALCULATED) > 59 mL/min/; GLUCOSE 96 mg/dL (70-99); POTASSIUM 3.1 MEQ/L (3.7-5.4); SAMPLE HEMOLYSIS CHECK 0; SAMPLE ICTERIC CHECK 0; SAMPLE LIPEMIA CHECK 0; SODIUM 143 MEQ/L (136-147); TOTAL BILIRUBIN 1.1 MG/DL (0.0-1.0); UREA NITROGEN (BUN) 4 mg/dL (9-23)
[2016-10-22 08:05] VITALS: BP 138/74
[2016-10-22 09:33] LABS: HEMATOCRIT 31.3 % (36.0-46.0); MCV 93.4 FL (83-99); PLATELET COUNT 96 K/uL (156-360); RBC DIS.WIDTH-CV 20.6 % (11.8-14.6); RBC DIS.WIDTH-SD 61.2 % (39-53); RED BLOOD COUNT 3.35 M/uL (3.80-5.20); WHITE BLOOD COUNT 20.8 K/uL (4.1-10.2)
[2016-10-22 16:26] VITALS: BP 140/74
[2016-10-23 00:32] VITALS: BP 120/61
[2016-10-23 06:47] LABS: ALKALINE PHOSPHATASE 108 IU/L (3-129); ANION GAP 8 MEQ/L (2-14); CHLORIDE 109 MEQ/L (99-109); GFR ESTIMATE (CALCULATED) > 59 mL/min/; GLUCOSE 84 mg/dL (70-99); POTASSIUM 3.6 MEQ/L (3.7-5.4); SAMPLE HEMOLYSIS CHECK 1; SAMPLE ICTERIC CHECK 0; SAMPLE LIPEMIA CHECK 0; SODIUM 141 MEQ/L (136-147); TOTAL BILIRUBIN 1.1 MG/DL (0.0-1.0); UREA NITROGEN (BUN) 3 mg/dL (9-23)
[2016-10-23 06:49] LABS: MCH 29.1 PG (29.0-34.0); MCHC 30.9 G/DL (30.0-36.0); RBC DIS.WIDTH-CV 21.1 % (11.8-14.6); RBC DIS.WIDTH-SD 62.1 % (39-53); RED BLOOD COUNT 3.51 M/uL (3.80-5.20); WHITE BLOOD COUNT 18.2 K/uL (4.1-10.2)
[2016-10-23 07:29] LABS: PLATELET COUNT 117 K/uL (156-360)
[2016-10-23 07:51] LABS: CORRECTED WBC COUNT 12.8 K/MM^3 (4.0-12.0); PATIENT NRBC 42; PATIENT WBC 18.16
[2016-10-23 08:20] VITALS: BP 144/64
[2016-10-23 15:02] VITALS: BP 139/67
[2016-10-24 00:16] VITALS: BP 135/74
[2016-10-24 08:14] VITALS: BP 137/60
[2016-10-24 15:34] VITALS: BP 137/70
[2016-10-24] MEDS ORDERED: VANCOMYCIN HCL250 MG PO (15:49)
[2016-10-24] MEDS ORDERED: GABAPENTIN300 MG PO (15:51)
[2016-10-24] MEDS ORDERED: POTASSIUM20 MEQ/11 PO (15:53)
== END 2016-10-24 19:27 | DRG 371 ==
LOC: EME → EDBD 08:46 → 4EAST 12:30 → 3EAST 12:30 → EDOF 12:30 → 3EAST 12:30 → EDOF 12:36 → 4EAST 16:49 → 3EAST 10-20 17:46
PROVIDERS: Anesthesiology; Emergency Medicine; Internal Medicine
PROC: 30233N1 Transfusion of Nonautologous Red Blood Cells into Peripheral Vein, Percutaneous Approach (ICD-10-PCS; principal; 2016-10-19)
DX: A04.7 Enterocolitis due to Clostridium difficile (principal); G92 Toxic encephalopathy; J90 Pleural effusion, not elsewhere classified; D75.81 Myelofibrosis; G81.92 Hemiplegia, unspecified affecting left dominant side; D62 Acute posthemorrhagic anemia; F05 Delirium due to known physiological condition; K92.2 Gastrointestinal hemorrhage, unspecified; J44.1 Chronic obstructive pulmonary disease with (acute) exacerbation; F23 Brief psychotic disorder; Z86.73 Personal history of transient ischemic attack (TIA), and cerebral infarction without residual deficits; I10 Essential (primary) hypertension; Z85.3 Personal history of malignant neoplasm of breast; Z90.81 Acquired absence of spleen; K80.20 Calculus of gallbladder without cholecystitis without obstruction; K57.30 Diverticulosis of large intestine without perforation or abscess without bleeding; D72.829 Elevated white blood cell count, unspecified; T37.8X5A Adverse effect of other specified systemic anti-infectives and antiparasitics, initial encounter; E87.6 Hypokalemia
CPT/HCPCS: 70450; 71020; 74176; 80048; 80053; 81003; 82272; 83605; 85007; 85025; 85027; 85060; 86850; 86900; 86901; 86920; 87040; 87086; 87493; 88184 90; 88185 90; 88189 90; 94640; 94640 76; 94760; 94799; 99202; 99281; 99285; J2060; J2405; J7030; P9016; S0030

== ENCOUNTER 2016-10-25 11:37 | Emergency (ER) | payer OTHER, MEDICARE ==
[2016-10-25] VITALS (15 sets, daily range): BP systolic 93–116; BP diastolic 67–73
[~2016-10-25] VITALS: Ht 157.5 cm; Wt 66.8 kg
[~2016-10-25 11:37] MED LIST changes: +DULCOLAX10 MG PR; +FLAGYL250 MG PO; +FLEET MINERAL133 ML PR; +IMODIUM A-D2 M2 PO; +LASIX20 MG PO; +MILK OF MAGN PO; +NORCO 5/3251 TABLET PO; +POTASSIUM20 MEQ/11 PO; +VANCOMYCIN HCL250 MG PO
[2016-10-25 12:58] LABS: INTER. NORMALIZED RATIO 1.1; PROTHROMBIN TIME 11.4 (9.2-11.2); PTT 25.6 (25-32)
[2016-10-25 13:14] LABS: CHLORIDE 111 mEq/L (99-109); SODIUM 139 mEq/L (136-147)
[2016-10-25 13:17] LABS: ANION GAP 12 MEQ/L (2-14); GLUCOSE 112 mg/dL (70-99)
[2016-10-25 13:20] LABS: GFR ESTIMATE (CALCULATED) > 59 mL/min/
[2016-10-25 13:21] LABS: UREA NITROGEN (BUN) 7 mg/dL (9-23)
[2016-10-25 13:25] LABS: TROP-I INTERPRETATION NEGATIVE; TROPONIN-I 0.02 ng/mL (0.0-0.30)
[2016-10-25 14:03] LABS: HEMATOCRIT 30.6 % (36.0-46.0); MCH 29.9 PG (29.0-34.0); MCV 93.3 FL (83-99); RBC DIS.WIDTH-CV 21.5 % (11.8-14.6); RBC DIS.WIDTH-SD 60.8 % (39-53); RED BLOOD COUNT 3.28 M/uL (3.80-5.20); WHITE BLOOD COUNT 19.3 K/uL (4.1-10.2)
[2016-10-25 14:04] LABS: DELETE MACHINE DIFF? YES
[2016-10-25 14:06] LABS: PLATELET COUNT 119 K/uL (156-360)
[2016-10-25 14:14] LABS: CORRECTED WBC COUNT 15.1 K/MM^3 (4.0-12.0); PATIENT NRBC 28; PATIENT WBC 19.33
[2016-10-25 14:16] LABS: ABS NEUTROPHIL COUNT 15.46; ANISOCYTOSIS 3+; EOSINOPHIL ABS CT 1.93; MACROCYTES 2+; MICROCYTOSIS OCC; PLAT.SUFFICIENCY DECREASED; POLYCHROMASIA OCC; USER ID TLW
== END 2016-10-25 16:01 ==
LOC: EME 11:37
PROVIDERS: Emergency Medicine
DX: I47.1 Supraventricular tachycardia (principal); E86.0 Dehydration; D72.829 Elevated white blood cell count, unspecified; E78.5 Hyperlipidemia, unspecified; I10 Essential (primary) hypertension; Z86.73 Personal history of transient ischemic attack (TIA), and cerebral infarction without residual deficits; Z86.000 Personal history of in-situ neoplasm of breast; Z87.891 Personal history of nicotine dependence
CPT/HCPCS: 71010; 80048; 84484; 85025; 85610; 85730; 93005; 99281; 99285; J0153; J7030

== ENCOUNTER 2016-11-19 09:37 | Inpatient (IN) | payer OTHER, MEDICARE ==
[~2016-11-19] VITALS: Ht 152.4 cm; Wt 61.0 kg
[2016-11-19 10:20] LABS: CHLORIDE 105 mEq/L (99-109); POTASSIUM 3.7 mEq/L (3.7-5.4); SODIUM 137 mEq/L (136-147)
[2016-11-19 10:21] LABS: ADD MIUA? YES; BILIRUBIN NEGATIVE; BLOOD SMALL; COLOR YELLOW ((YELLOW)); GLUCOSE (STRIP) NEGATIVE; KETONES NEGATIVE; LEUKOCYTES LARGE; NITRITE NEGATIVE; PROTEIN (STRIP) NEGATIVE; SPECIFIC GRAVITY 1.012 (1.000-1.030); UROBILINOGEN 0.2 MG/DL (0.2-1.0)
[2016-11-19 10:23] LABS: GLUCOSE 109 mg/dL (70-99)
[2016-11-19 10:24] LABS: ANION GAP 10 MEQ/L (2-14)
[2016-11-19 10:26] LABS: ALKALINE PHOSPHATASE 248 IU/L (3-129); GFR ESTIMATE (CALCULATED) > 59 mL/min/
[2016-11-19 10:27] LABS: UREA NITROGEN (BUN) 11 mg/dL (9-23)
[2016-11-19 10:38] LABS: HEMATOCRIT 28.9 % (36.0-46.0); MCH 29.6 PG (29.0-34.0); MCHC 30.8 G/DL (30.0-36.0); MEAN PLAT.VOLUME 12.2 uM^3 (9.5-12.4); NRBC (%) 10.9 /100 WBC (0-0); PLATELET COUNT 476 K/uL (156-360); RBC DIS.WIDTH-CV 25.2 % (11.8-14.6); RBC DIS.WIDTH-SD 82.4 % (39-53); RED BLOOD COUNT 3.01 M/uL (3.80-5.20); WHITE BLOOD COUNT 24.5 K/uL (4.1-10.2)
[2016-11-19 10:51] LABS: BACTERIA 2+ /HPF; CASTS PRESENT /LPF; EPITHELIAL CELLS 1+ /HPF; MUCUS NONE SEEN /LPF; UCUL ADDED? YES; WHITE BLOOD CELLS TNTC /HPF (0-5); WHITE CELL CASTS 0-5 /LPF
[2016-11-19] MEDS ORDERED: CYANOCOBALAM1000 MCG PO (12:02)
[2016-11-19] MEDS ORDERED: LYRICA225 MG PO (12:03)
[2016-11-19] MEDS ORDERED: PROBIOTIC1 EAC1 PO (12:03)
[2016-11-19 12:42] LABS: C DIFF TOXIN POSITIVE (NEGATIVE)
[2016-11-19 12:47] LABS: ABS NEUTROPHIL COUNT 19.9; ANISOCYTOSIS 3+; BAND NEUTROPHILS 24.8 % (0-8.0); BASOPHILS 0.9 %; EOSINOPHIL ABS CT 1.1; EOSINOPHILS 4.4 % (0-5.0); GIANT PLATELETS 1+; HYPOCHROMASIA 2+; INSTRUMENT ABS NEUTROPHIL CT 17.5 K/uL; LYMPHOCYTES 0.9 % (15.0-45.0); MACROCYTES 1+; MICROCYTOSIS 2+; NUCLEATED RBC'S 9.7; OVALOCYTES 1+; PLAT.SUFFICIENCY INCREASED; POIKILOCYTOSIS 2+; POLYCHROMASIA 1+; SEG.NEUTROPHILS 56.6 % (46.0-76.0); SPHEROCYTES 1+; TARGET CELLS 1+
[2016-11-19 12:52] LABS: PROBE CHECK PASS
[2016-11-19 14:49] VITALS: BP 129/59
[2016-11-19 19:00] VITALS: BP 118/56
[2016-11-20] VITALS: BP 102/52
[2016-11-20 04:00] VITALS: BP 98/36
[2016-11-20 08:14] VITALS: BP 103/53
[2016-11-20 08:55] LABS: ALKALINE PHOSPHATASE 195 IU/L (3-129); ANION GAP 9 MEQ/L (2-14); CHLORIDE 105 MEQ/L (99-109); DIRECT BILIRUBIN 0.3 mg/dL (0.0-0.3); GFR ESTIMATE (CALCULATED) > 59 mL/min/; GLUCOSE 129 mg/dL (70-99); POTASSIUM 3.6 MEQ/L (3.7-5.4); SAMPLE HEMOLYSIS CHECK 0; SAMPLE ICTERIC CHECK 0; SAMPLE LIPEMIA CHECK 0; SODIUM 135 MEQ/L (136-147); TOTAL BILIRUBIN 1.6 MG/DL (0.0-1.0); UREA NITROGEN (BUN) 10 mg/dL (9-23)
[2016-11-20 09:02] LABS: HEMATOCRIT 27.4 % (36.0-46.0); MCH 29.4 PG (29.0-34.0); MCHC 29.9 G/DL (30.0-36.0); MCV 98.2 FL (83-99); MEAN PLAT.VOLUME 13.4 uM^3 (9.5-12.4); NRBC (%) 6.5 /100 WBC (0-0); PLATELET COUNT 408 K/uL (156-360); RBC DIS.WIDTH-CV 25.5 % (11.8-14.6); RBC DIS.WIDTH-SD 86.4 % (39-53); RED BLOOD COUNT 2.79 M/uL (3.80-5.20); WHITE BLOOD COUNT 32.6 K/uL (4.1-10.2)
[2016-11-20 09:18] LABS: ABS NEUTROPHIL COUNT 28.5; ACANTHOCYTES 1+; ANISOCYTOSIS 2+; ATYPICAL LYMPHOCYTE 2.7 %; EOSINOPHIL ABS CT 1.2; EOSINOPHILS 3.6 % (0-5.0); HELMET CELLS 1+; INSTRUMENT ABS NEUTROPHIL CT 24.6 K/uL; LYMPHOCYTES 0.9 % (15.0-45.0); MACROCYTES 1+; MICROCYTOSIS 1+; NUCLEATED RBC'S 17.1; OVALOCYTES 1+; PLAT.SUFFICIENCY INCREASED; POIKILOCYTOSIS 2+; POLYCHROMASIA 2+; SMUDGE CELLS 4.5; SPHEROCYTES 1+
[2016-11-20 10:02] LABS: BAND NEUTROPHILS 4.5 % (0-8.0); SEG.NEUTROPHILS 82.9 % (46.0-76.0)
[2016-11-20 10:14] LABS: INTERNAL CONTROL VALID? YES
[2016-11-20 11:50] VITALS: BP 88/50
[2016-11-20 15:52] VITALS: BP 94/51
[2016-11-20 21:39] VITALS: BP 110/52
[2016-11-21 03:42] VITALS: BP 106/58
[2016-11-21 08:00] VITALS: BP 108/53
[2016-11-21 08:38] LABS: INTERNAL CONTROL VALID? YES
[2016-11-21 08:40] LABS: HEMATOCRIT 28.6 % (36.0-46.0); MCH 28.7 PG (29.0-34.0); MEAN PLAT.VOLUME 13.1 uM^3 (9.5-12.4); NRBC (%) 7.9 /100 WBC (0-0); PLATELET COUNT 435 K/uL (156-360); RBC DIS.WIDTH-CV 25.9 % (11.8-14.6); RBC DIS.WIDTH-SD 88.1 % (39-53); RED BLOOD COUNT 2.89 M/uL (3.80-5.20); WHITE BLOOD COUNT 19.6 K/uL (4.1-10.2)
[2016-11-21 08:46] LABS: ALKALINE PHOSPHATASE 193 IU/L (3-129); ANION GAP 7 MEQ/L (2-14); CHLORIDE 111 MEQ/L (99-109); DIRECT BILIRUBIN 0.2 mg/dL (0.0-0.3); GFR ESTIMATE (CALCULATED) > 59 mL/min/; SAMPLE HEMOLYSIS CHECK 0; SAMPLE ICTERIC CHECK 0; SAMPLE LIPEMIA CHECK 0; SODIUM 140 MEQ/L (136-147); UREA NITROGEN (BUN) 8 mg/dL (9-23)
[2016-11-21 08:47] LABS: GLUCOSE 90 mg/dL (70-99); TOTAL BILIRUBIN 0.8 MG/DL (0.0-1.0)
[2016-11-21 08:54] LABS: SEG.NEUTROPHILS 71.8 % (46.0-76.0)
[2016-11-21 08:55] LABS: ABS NEUTROPHIL COUNT 14.8; ANISOCYTOSIS 2+; ATYPICAL LYMPHOCYTE 0.9 %; BAND NEUTROPHILS 3.6 % (0-8.0); BURR CELLS 1+; EOSINOPHIL ABS CT 2.5; EOSINOPHILS 12.7 % (0-5.0); INSTRUMENT ABS NEUTROPHIL CT 13.3 K/uL; LYMPHOCYTES 4.6 % (15.0-45.0); MACROCYTES 2+; MICROCYTOSIS 1+; OVALOCYTES 1+; PLAT.SUFFICIENCY INCREASED; POIKILOCYTOSIS 2+; POLYCHROMASIA 1+; SCHISTOCYTES 1+; TEAR DROP CELLS 1+
[2016-11-21 12:00] VITALS: BP 129/74
[2016-11-21 20:00] VITALS: BP 108/56
[2016-11-21 23:25] VITALS: BP 97/51
[2016-11-22 03:28] LABS: ANTI-SMOOTH MUSCLE (Actin)+ <20 U (<20)
[2016-11-22 03:57] VITALS: BP 96/51
[2016-11-22 08:19] LABS: ALKALINE PHOSPHATASE 182 IU/L (3-129); ANION GAP 9 MEQ/L (2-14); CHLORIDE 112 MEQ/L (99-109); GFR ESTIMATE (CALCULATED) > 59 mL/min/; GLUCOSE 91 mg/dL (70-99); POTASSIUM 4.1 MEQ/L (3.7-5.4); SAMPLE HEMOLYSIS CHECK 0; SAMPLE ICTERIC CHECK 0; SAMPLE LIPEMIA CHECK 0; SODIUM 142 MEQ/L (136-147); UREA NITROGEN (BUN) 5 mg/dL (9-23)
[2016-11-22 08:20] LABS: TOTAL BILIRUBIN 0.6 MG/DL (0.0-1.0)
[2016-11-22 08:51] LABS: ABS NEUTROPHIL COUNT 9.3; ANISOCYTOSIS 2+; BASOPHILS 1.1 %; BURR CELLS 1+; EOSINOPHIL ABS CT 1.8; EOSINOPHILS 13.2 % (0-5.0); HEMATOCRIT 25.8 % (36.0-46.0); HYPOCHROMASIA 2+; INSTRUMENT ABS NEUTROPHIL CT 6.4 K/uL; LYMPHOCYTES 8.8 % (15.0-45.0); MACROCYTES 2+; MCH 28.7 PG (29.0-34.0); MCHC 29.5 G/DL (30.0-36.0); MCV 97.4 FL (83-99); METAMYELOCYTES 1.1 %; MYELOCYTES 1.1 %; NRBC (%) 11.2 /100 WBC (0-0); NUCLEATED RBC'S 25.3; OVALOCYTES 1+; PLATELET CLUMPS PRESENT - PLATELET COUNT APPEARS INCREASED; POIKILOCYTOSIS 2+; POLYCHROMASIA 1+; RBC DIS.WIDTH-CV 26.5 % (11.8-14.6); RBC DIS.WIDTH-SD 86.7 % (39-53); RED BLOOD COUNT 2.65 M/uL (3.80-5.20); SCHISTOCYTES 1+; SEG.NEUTROPHILS 69.2 % (46.0-76.0)
[2016-11-22 08:55] LABS: PLATELET COUNT UNABLE TO REPORT K/uL (156-360); WHITE BLOOD COUNT 13.5 K/uL (4.1-10.2)
[2016-11-22 09:00] VITALS: BP 116/60
[2016-11-22 19:59] VITALS: BP 122/55
[2016-11-22 23:42] VITALS: BP 91/53
[2016-11-23 03:46] VITALS: BP 102/50
[2016-11-23 08:50] VITALS: BP 103/51
[2016-11-23 10:30] VITALS: BP 102/50
[2016-11-23 16:05] VITALS: BP 126/59
[2016-11-23 19:40] VITALS: BP 116/60
[2016-11-23 23:55] VITALS: BP 113/63
[2016-11-24 00:03] LABS: MITOCHONDRIAL (M2) ANTIBODIES+ <=20.0 U (<=20.0)
[2016-11-24 03:51] VITALS: BP 112/64
[2016-11-24 08:36] VITALS: BP 118/60
[2016-11-24] MEDS ORDERED: VANCOCIN 250 M250 MG PO (10:39)
== END 2016-11-24 11:32 | disposition home health service (06) | DRG 871 ==
LOC: EME 09:37 → EDOF 12:12 → 2EAST 12:12
PROVIDERS: Emergency Medicine; Hospitalist; Internal Medicine; Internal Medicine Gastroenterology
DX: A41.9 Sepsis, unspecified organism (principal); A04.7 Enterocolitis due to Clostridium difficile; J96.01 Acute respiratory failure with hypoxia; I69.354 Hemiplegia and hemiparesis following cerebral infarction affecting left non-dominant side; K83.1 Obstruction of bile duct; R65.20 Severe sepsis without septic shock; E86.0 Dehydration; J44.9 Chronic obstructive pulmonary disease, unspecified; I10 Essential (primary) hypertension; E78.5 Hyperlipidemia, unspecified; D64.9 Anemia, unspecified; K21.9 Gastro-esophageal reflux disease without esophagitis; F41.9 Anxiety disorder, unspecified; G25.81 Restless legs syndrome; Z96.642 Presence of left artificial hip joint; Z90.81 Acquired absence of spleen; Z79.82 Long term (current) use of aspirin; Z87.891 Personal history of nicotine dependence; Z85.3 Personal history of malignant neoplasm of breast
CPT/HCPCS: 71010; 71250; 74176; 76705; 80048; 80053; 80076; 81003; 82248; 83516 90; 83605; 85025; 86038; 86256 90; 87040; 87070; 87086; 87205; 87449; 87493; 93005; 94640; 94640 76; 94799; 99202; 99281; 99285; J0696; J1650; J2543; J7030; J7050; S0030

== ENCOUNTER 2017-02-03 13:34 | Emergency (ER) | payer OTHER, MEDICARE ==
[~2017-02-03] VITALS: Ht 152.4 cm; Wt 61.4 kg
[~2017-02-03 13:34] MED LIST changes: +CYANOCOBALAM1000 MCG PO; +LYRICA225 MG PO; +PROBIOTIC1 EAC1 PO; +VANCOCIN 250 M250 MG PO
[2017-02-03 14:34] LABS: HEMATOCRIT 28.6 % (36.0-46.0); MCH 30.5 PG (29.0-34.0); MCHC 30.1 G/DL (30.0-36.0); MCV 101.4 FL (83-99); MEAN PLAT.VOLUME 12.2 uM^3 (9.5-12.4); NRBC (%) 27.5 /100 WBC (0-0); RBC DIS.WIDTH-SD 108.9 % (39-53); RED BLOOD COUNT 2.82 M/uL (3.80-5.20); WHITE BLOOD COUNT 13.9 K/uL (4.1-10.2)
[2017-02-03 14:45] LABS: CHLORIDE 110 mEq/L (99-109); POTASSIUM 3.9 mEq/L (3.7-5.4); SODIUM 143 mEq/L (136-147)
[2017-02-03 14:47] LABS: GLUCOSE 98 mg/dL (70-99)
[2017-02-03 14:48] LABS: ANION GAP 10 MEQ/L (2-14)
[2017-02-03 14:50] LABS: GFR ESTIMATE (CALCULATED) > 59 mL/min/
[2017-02-03 14:51] LABS: UREA NITROGEN (BUN) 9 mg/dL (9-23)
[2017-02-03 14:56] LABS: TROP-I INTERPRETATION NEGATIVE; TROPONIN-I 0.21 ng/mL (0.0-0.30)
[2017-02-03 15:40] LABS: PLATELET COUNT 455 K/uL (156-360)
[2017-02-03 20:07] VITALS: BP 117/58
== END 2017-02-03 20:08 | disposition home or self-care (01) ==
LOC: EME 13:34
DX: I80.8 Phlebitis and thrombophlebitis of other sites (principal); R06.02 Shortness of breath; R09.02 Hypoxemia; I10 Essential (primary) hypertension; E78.5 Hyperlipidemia, unspecified; Z86.73 Personal history of transient ischemic attack (TIA), and cerebral infarction without residual deficits; Z79.82 Long term (current) use of aspirin; Z87.891 Personal history of nicotine dependence
CPT/HCPCS: 71020; 71275; 80048; 84484; 85027; 93005; 93971; 99281; 99284

== ENCOUNTER 2017-02-06 21:46 | Inpatient (IN) | payer OTHER, MEDICARE ==
[~2017-02-06] VITALS: Ht 152.4 cm; Wt 68.8 kg
[2017-02-06 22:45] LABS: HEMATOCRIT 31.9 % (36.0-46.0); MCH 30.4 PG (29.0-34.0); MCHC 29.8 G/DL (30.0-36.0); MCV 101.9 FL (83-99); MEAN PLAT.VOLUME 13.3 uM^3 (9.5-12.4); NRBC (%) 30.5 /100 WBC (0-0); PLATELET COUNT 463 K/uL (156-360); RBC DIS.WIDTH-CV 29.7 % (11.8-14.6); RBC DIS.WIDTH-SD 109.8 % (39-53); RED BLOOD COUNT 3.13 M/uL (3.80-5.20); WHITE BLOOD COUNT 14.8 K/uL (4.1-10.2)
[2017-02-06 23:01] LABS: CHLORIDE 106 mEq/L (99-109); POTASSIUM 4.1 mEq/L (3.7-5.4); SODIUM 140 mEq/L (136-147)
[2017-02-06 23:02] LABS: GLUCOSE 107 mg/dL (70-99)
[2017-02-06 23:04] LABS: ANION GAP 8 MEQ/L (2-14)
[2017-02-06 23:06] LABS: GFR ESTIMATE (CALCULATED) > 59 mL/min/; TOTAL BILIRUBIN 1.7 mg/dL (0.0-1.0)
[2017-02-06 23:07] LABS: ALKALINE PHOSPHATASE 201 IU/L (3-129); UREA NITROGEN (BUN) 12 mg/dL (9-23)
[2017-02-06 23:09] LABS: INTER. NORMALIZED RATIO 1.1; PROTHROMBIN TIME 10.7 (9.2-11.2)
[2017-02-06 23:10] LABS: DIRECT BILIRUBIN 0.5 mg/dL (0.0-0.3)
[2017-02-06 23:11] LABS: LIPASE 70 U/L (1.0-51.0)
[2017-02-06 23:22] LABS: TROP-I INTERPRETATION INDETERMINATE
[2017-02-07] VITALS (7 sets, daily range): BP systolic 86–139; BP diastolic 50–65
[2017-02-07 01:09] LABS: ADD MIUA? NO; BILIRUBIN NEGATIVE; BLOOD NEGATIVE; COLOR STRAW ((YELLOW)); GLUCOSE (STRIP) NEGATIVE; KETONES NEGATIVE; LEUKOCYTES NEGATIVE; NITRITE NEGATIVE; PROTEIN (STRIP) NEGATIVE; SPECIFIC GRAVITY 1.017 (1.000-1.030); UCUL ADDED? NO; UROBILINOGEN 0.2 MG/DL (0.2-1.0)
[2017-02-07 06:01] LABS: TROP-I INTERPRETATION INDETERMINATE; TROPONIN-I 0.31 ng/mL (0.0-0.30)
[2017-02-07 12:43] LABS: FASTING STATUS NONFASTING
[2017-02-07 13:51] LABS: HDL CHOLESTEROL 34 MG/DL (Desirable>=50); LDL CHOLESTEROL 39 mg/dL (Desirable<100); NON-HDL CHOLESTEROL 74 mg/dL (Desirable<160); TOTAL CHOLESTEROL 108 mg/dL (Desirable<200); TRIGLYCERIDES 175 MG/DL (Normal: <150)
[2017-02-08 04:00] VITALS: BP 104/57
[2017-02-08 04:44] VITALS: BP 116/65
[2017-02-08 07:20] LABS: HEMATOCRIT 28.9 % (36.0-46.0); MCH 30.7 PG (29.0-34.0); MCHC 29.8 G/DL (30.0-36.0); MCV 103.2 FL (83-99); MEAN PLAT.VOLUME 13.7 uM^3 (9.5-12.4); NRBC (%) 27.2 /100 WBC (0-0); PLATELET COUNT 436 K/uL (156-360); RBC DIS.WIDTH-CV 29.5 % (11.8-14.6); WHITE BLOOD COUNT 11.4 K/uL (4.1-10.2)
[2017-02-08 07:50] LABS: ANION GAP 10 MEQ/L (2-14); CHLORIDE 109 MEQ/L (99-109); GFR ESTIMATE (CALCULATED) > 59 mL/min/; POTASSIUM 3.7 MEQ/L (3.7-5.4); SAMPLE HEMOLYSIS CHECK 0; SAMPLE ICTERIC CHECK 0; SAMPLE LIPEMIA CHECK 0; SODIUM 144 MEQ/L (136-147); UREA NITROGEN (BUN) 14 mg/dL (9-23)
[2017-02-08 07:51] LABS: GLUCOSE 77 mg/dL (70-99)
[2017-02-08 08:14] LABS: TROP-I INTERPRETATION NEGATIVE; TROPONIN-I 0.24 ng/mL (0.0-0.30)
[2017-02-08 08:30] VITALS: BP 109/55
[2017-02-08 11:23] VITALS: BP 102/55
[2017-02-08] MEDS ORDERED: CLOPIDOGREL75 MG PO (13:25)
[2017-02-08] MEDS ORDERED: METOPROLOL SUCC25 MG PO (13:25)
== END 2017-02-08 14:11 | disposition home health service (06) | DRG 65 ==
LOC: EME 21:46 → EDOF 02-07 00:45 → 5WEST 02-07 01:58
PROVIDERS: Emergency Medicine; Hospitalist; Physician Assistant
DX: I63.9 Cerebral infarction, unspecified (principal); D68.59 Other primary thrombophilia; F33.9 Major depressive disorder, recurrent, unspecified; H53.122 Transient visual loss, left eye; I77.1 Stricture of artery; I10 Essential (primary) hypertension; G62.9 Polyneuropathy, unspecified; K21.9 Gastro-esophageal reflux disease without esophagitis; I35.0 Nonrheumatic aortic (valve) stenosis; Z98.1 Arthrodesis status; Z85.3 Personal history of malignant neoplasm of breast; Z90.81 Acquired absence of spleen; Z86.73 Personal history of transient ischemic attack (TIA), and cerebral infarction without residual deficits; Z87.891 Personal history of nicotine dependence; Z79.82 Long term (current) use of aspirin; I27.2 Other secondary pulmonary hypertension; I36.1 Nonrheumatic tricuspid (valve) insufficiency; G47.30 Sleep apnea, unspecified; E78.5 Hyperlipidemia, unspecified; F41.9 Anxiety disorder, unspecified; H53.461 Homonymous bilateral field defects, right side; D64.9 Anemia, unspecified; R47.1 Dysarthria and anarthria
CPT/HCPCS: 70450; 70496; 70498; 70551; 71020; 80048; 80061; 80076; 81003; 83690; 83880; 84484; 85027; 85610; 85730; 93005; 94640; 94760; 94799; 99281; 99284; J2060

== ENCOUNTER 2017-03-21 18:50 | Emergency (ER) | payer OTHER, MEDICARE ==
[~2017-03-21] VITALS: Ht 152.4 cm; Wt 57.1 kg
[~2017-03-21 18:50] MED LIST changes: +CLOPIDOGREL75 MG PO; +METOPROLOL SUCC25 MG PO
[2017-03-21] MEDS ORDERED: FLEXERIL5 MG PO (19:21)
[2017-03-21] MEDS ORDERED: REQUIP0.25 MG PO (19:22)
[2017-03-21 20:27] LABS: HEMATOCRIT 36.4 % (36.0-46.0); MCH 29.5 PG (29.0-34.0); MEAN PLAT.VOLUME 12.5 uM^3 (9.5-12.4); NRBC (%) 5.3 /100 WBC (0-0); PLATELET COUNT 656 K/uL (156-360); RBC DIS.WIDTH-CV 27.1 % (11.8-14.6); RBC DIS.WIDTH-SD 93.3 % (39-53); RED BLOOD COUNT 3.83 M/uL (3.80-5.20); WHITE BLOOD COUNT 16.7 K/uL (4.1-10.2)
[2017-03-21 20:35] LABS: CHLORIDE 112 mEq/L (99-109); POTASSIUM 5.2 mEq/L (3.7-5.4); SODIUM 143 mEq/L (136-147)
[2017-03-21 20:37] LABS: GLUCOSE 114 mg/dL (70-99)
[2017-03-21 20:38] LABS: ANION GAP 13 MEQ/L (2-14)
[2017-03-21 20:40] LABS: D-DIMER ELISA > 4.00 mg/L FEU (< 0.57)
[2017-03-21 20:41] LABS: GFR ESTIMATE (CALCULATED) > 59 mL/min/
[2017-03-21 20:42] LABS: UREA NITROGEN (BUN) 11 mg/dL (9-23)
[2017-03-21 20:47] LABS: TROP-I INTERPRETATION POSITIVE
[2017-03-21 21:05] LABS: ABS NEUTROPHIL COUNT 15.4; BAND NEUTROPHILS 1.8 % (0-8.0); BASOPHILS 0.9 %; EOSINOPHIL ABS CT 0.3; EOSINOPHILS 1.8 % (0-5.0); INSTRUMENT ABS NEUTROPHIL CT 13.9 K/uL; LYMPHOCYTES 1.8 % (15.0-45.0); NUCLEATED RBC'S 5.3; PLAT.SUFFICIENCY INCREASED; SEG.NEUTROPHILS 90.2 % (46.0-76.0); SMUDGE CELLS 2.7
[2017-03-22 00:33] LABS: INTER. NORMALIZED RATIO 1.1; PROTHROMBIN TIME 11.1 (9.2-11.2); PTT 27.5 (25-32)
[2017-03-22 01:21] VITALS: BP 114/77
== END 2017-03-22 01:22 | disposition short-term general hospital (02) ==
LOC: EME 18:50
PROVIDERS: Emergency Medicine
DX: I26.99 Other pulmonary embolism without acute cor pulmonale (principal); I51.89 Other ill-defined heart diseases; I25.10 Atherosclerotic heart disease of native coronary artery without angina pectoris; I25.84 Coronary atherosclerosis due to calcified coronary lesion; I63.9 Cerebral infarction, unspecified; R41.0 Disorientation, unspecified; R79.89 Other specified abnormal findings of blood chemistry; E78.5 Hyperlipidemia, unspecified; F32.9 Major depressive disorder, single episode, unspecified; Z85.3 Personal history of malignant neoplasm of breast; Z90.81 Acquired absence of spleen; Z87.891 Personal history of nicotine dependence; G25.81 Restless legs syndrome; Z96.642 Presence of left artificial hip joint
CPT/HCPCS: 70450; 71010; 71275; 80048; 83880; 84484; 85025; 85379; 85610; 85730; 93005; 99281; 99285; J7030

== ENCOUNTER 2017-04-18 14:14 | Inpatient (IN) | payer OTHER, MEDICARE ==
[~2017-04-18] VITALS: Ht 152.4 cm; Wt 57.5 kg
[~2017-04-18 14:14] MED LIST changes: +COUMADIN5 MG PO; +LIPITOR80 MG PO; +LOW DOSE ASPIRI81 M1 PO; +MULTIPLE VITAM1 EAC1 PO; +NASA MIST SALIN75 ML BOTH NARES; +PRILOSEC20 MG PO; +PROZAC20 MG PO; +VITAMIN B-1100 MG PO
[2017-04-18 15:17] LABS: HEMATOCRIT 32.2 % (36.0-46.0); MCH 31.3 PG (29.0-34.0); MCHC 32.6 G/DL (30.0-36.0); NRBC (%) 29.2 /100 WBC (0-0); RBC DIS.WIDTH-SD 87.8 % (39-53); WHITE BLOOD COUNT 5.4 K/uL (4.1-10.2)
[2017-04-18 15:21] LABS: INTER. NORMALIZED RATIO 1.6; PROTHROMBIN TIME 17.5 SEC (10.2-12.9)
[2017-04-18 15:23] LABS: PTT 32.3 SEC (25-37)
[2017-04-18 15:45] LABS: CHLORIDE 107 mEq/L (99-109); POTASSIUM 3.5 mEq/L (3.7-5.4); SODIUM 139 mEq/L (136-147)
[2017-04-18 15:48] LABS: ANION GAP 9 MEQ/L (2-14)
[2017-04-18 15:50] LABS: GFR ESTIMATE (CALCULATED) > 59 mL/min/
[2017-04-18 15:51] LABS: UREA NITROGEN (BUN) 10 mg/dL (9-23)
[2017-04-18 16:23] LABS: ABS NEUTROPHIL COUNT 2.9; ACANTHOCYTES 2+; ANISOCYTOSIS 3+; ATYPICAL LYMPHOCYTE 6.4 %; BAND NEUTROPHILS 2.7 % (0-8.0); BASOPHILS 0.9 %; BURR CELLS 1+; EOSINOPHIL ABS CT 1.1; HYPOCHROMASIA 2+; INSTRUMENT ABS NEUTROPHIL CT 1.9 K/uL; LYMPHOCYTES 13.8 % (15.0-45.0); MACROCYTES 2+; MEAN PLAT.VOLUME 13.4 uM^3 (9.5-12.4); NUCLEATED RBC'S 35.8; PLAT.SUFFICIENCY INCREASED; POIKILOCYTOSIS 2+; POLYCHROMASIA 1+; RED BLOOD COUNT 3.36 M/uL (3.80-5.20); SCHISTOCYTES 2+; SEG.NEUTROPHILS 51.4 % (46.0-76.0); TARGET CELLS 1+
[2017-04-18 16:24] LABS: EOSINOPHILS 21.1 % (0-5.0); MCV 95.8 FL (83-99); PLATELET COUNT 411 K/uL (156-360)
[2017-04-18 20:53] LABS: HDL CHOLESTEROL 53 MG/DL (Desirable>=50); LDL CHOLESTEROL 46 mg/dL (Desirable<100); NON-HDL CHOLESTEROL 70 mg/dL (Desirable<160); TOTAL CHOLESTEROL 123 mg/dL (Desirable<200); TRIGLYCERIDES 122 MG/DL (Normal: <150)
[2017-04-18 21:07] VITALS: BP 145/70
[2017-04-18 23:10] VITALS: BP 145/70
[2017-04-19 06:01] LABS: HEMATOCRIT 31.2 % (36.0-46.0); MCV 96.9 FL (83-99); MEAN PLAT.VOLUME 13.6 uM^3 (9.5-12.4); PLATELET COUNT 418 K/uL (156-360); RBC DIS.WIDTH-CV 28.7 % (11.8-14.6); RBC DIS.WIDTH-SD 89.2 % (39-53); RED BLOOD COUNT 3.22 M/uL (3.80-5.20); WHITE BLOOD COUNT 5.5 K/uL (4.1-10.2)
[2017-04-19 07:04] LABS: Estimated Average Glucose 91 mg/dL (70-123); HEMOGLOBIN A1c (GLYCOHEMOGLOB) 4.8 % HGB (Below 5.7)
[2017-04-19 07:57] VITALS: BP 117/69
[2017-04-19 11:35] VITALS: BP 123/73
[2017-04-19] MEDS ORDERED: HYDROXYUREA500 MG PO (13:32)
[2017-04-19] MEDS ORDERED: TYLENOL REGULA325 MG PO (13:39)
[2017-04-19 15:39] VITALS: BP 136/84
[2017-04-19 15:44] VITALS: BP 105/55
[2017-04-19 19:50] VITALS: BP 120/62
[2017-04-19 23:10] LABS: ADD MIUA? YES; BILIRUBIN NEGATIVE; BLOOD NEGATIVE; COLOR YELLOW ((YELLOW)); GLUCOSE (STRIP) NEGATIVE; KETONES NEGATIVE; LEUKOCYTES SMALL; NITRITE NEGATIVE; PROTEIN (STRIP) NEGATIVE; SPECIFIC GRAVITY 1.014 (1.000-1.030); UROBILINOGEN 0.2 MG/DL (0.2-1.0)
[2017-04-19 23:15] LABS: BACTERIA NONE SEEN /HPF; EPITHELIAL CELLS RARE /HPF; MUCUS 1+ /LPF; RED BLOOD CELLS 0-5 /HPF (0-5); UCUL ADDED? YES
[2017-04-19 23:20] VITALS: BP 119/64
[2017-04-19 23:53] LABS: INTER. NORMALIZED RATIO 1.4; PROTHROMBIN TIME 15.3 SEC (10.2-12.9)
[2017-04-19 23:56] LABS: PTT 33.8 SEC (25-37)
[2017-04-20 03:54] VITALS: BP 103/55
[2017-04-20 06:25] LABS: INTER. NORMALIZED RATIO 1.4
[2017-04-20 06:28] LABS: PTT 40.3 SEC (25-37)
[2017-04-20 07:37] VITALS: BP 126/58
[2017-04-20 11:50] VITALS: BP 123/72
[2017-04-20 14:17] LABS: INTER. NORMALIZED RATIO 1.4; PROTHROMBIN TIME 15.5 SEC (10.2-12.9)
[2017-04-20 15:54] VITALS: BP 127/66
[2017-04-20 19:58] VITALS: BP 145/69
[2017-04-20 23:34] VITALS: BP 132/60
[2017-04-21 03:20] VITALS: BP 134/72
[2017-04-21 07:22] LABS: INTER. NORMALIZED RATIO 1.4; PROTHROMBIN TIME 15.5 SEC (10.2-12.9)
[2017-04-21 07:42] VITALS: BP 125/68
[2017-04-21 11:27] VITALS: BP 118/68
[2017-04-21 16:12] VITALS: BP 114/68
[2017-04-21 19:34] VITALS: BP 134/64
[2017-04-22] VITALS: BP 110/54
[2017-04-22 04:00] VITALS: BP 121/58
[2017-04-22 07:39] LABS: HEMATOCRIT 32.3 % (36.0-46.0); MCH 31.5 PG (29.0-34.0); MCHC 31.9 G/DL (30.0-36.0); MCV 98.8 FL (83-99); MEAN PLAT.VOLUME 13.1 uM^3 (9.5-12.4); NRBC (%) 7.1 /100 WBC (0-0); PLATELET COUNT 522 K/uL (156-360); RBC DIS.WIDTH-CV 28.8 % (11.8-14.6); RBC DIS.WIDTH-SD 95.8 % (39-53); RED BLOOD COUNT 3.27 M/uL (3.80-5.20); WHITE BLOOD COUNT 4.7 K/uL (4.1-10.2)
[2017-04-22 07:44] LABS: ALKALINE PHOSPHATASE 126 IU/L (3-129); ANION GAP 8 MEQ/L (2-14); CHLORIDE 108 MEQ/L (99-109); GFR ESTIMATE (CALCULATED) > 59 mL/min/; GLUCOSE 92 mg/dL (70-99); SAMPLE HEMOLYSIS CHECK 0; SAMPLE ICTERIC CHECK 0; SAMPLE LIPEMIA CHECK 0; SODIUM 141 MEQ/L (136-147); TOTAL BILIRUBIN 1.6 MG/DL (0.0-1.0); UREA NITROGEN (BUN) 16 mg/dL (9-23)
[2017-04-22 07:45] LABS: POTASSIUM 4.5 MEQ/L (3.7-5.4)
[2017-04-22 07:50] VITALS: BP 118/67
[2017-04-22 08:09] LABS: ABS NEUTROPHIL COUNT 2.4; ACANTHOCYTES 1+; ANISOCYTOSIS 2+; BASOPHILS 2.9 %; BURR CELLS 1+; EOSINOPHIL ABS CT 1.2; EOSINOPHILS 24.5 % (0-5.0); HELMET CELLS 1+; HEMATOLOGY COMMENT 1 SN; HYPOCHROMASIA 1+; INSTRUMENT ABS NEUTROPHIL CT 2.2 K/uL; LYMPHOCYTES 12.8 % (15.0-45.0); MACROCYTES 2+; NUCLEATED RBC'S 6.9; PLAT.SUFFICIENCY INCREASED; POIKILOCYTOSIS 1+; POLYCHROMASIA 1+; SPHEROCYTES 1+; TARGET CELLS 1+
[2017-04-22 16:06] VITALS: BP 124/67
[2017-04-23 00:04] VITALS: BP 113/59
[2017-04-23 06:35] LABS: INTER. NORMALIZED RATIO 2.3; PROTHROMBIN TIME 26.3 SEC (10.2-12.9)
[2017-04-23 08:30] VITALS: BP 114/55
[2017-04-23 16:13] VITALS: BP 125/70
[2017-04-23 23:52] VITALS: BP 115/55
[2017-04-24 06:25] LABS: ANION GAP 8 MEQ/L (2-14); CHLORIDE 106 MEQ/L (99-109); GFR ESTIMATE (CALCULATED) > 59 mL/min/; GLUCOSE 86 mg/dL (70-99); POTASSIUM 4.4 MEQ/L (3.7-5.4); SAMPLE HEMOLYSIS CHECK 0; SAMPLE ICTERIC CHECK 0; SAMPLE LIPEMIA CHECK 0; SODIUM 140 MEQ/L (136-147); UREA NITROGEN (BUN) 13 mg/dL (9-23)
[2017-04-24 06:36] LABS: INTER. NORMALIZED RATIO 2.6; PROTHROMBIN TIME 29.3 SEC (10.2-12.9)
[2017-04-24 07:57] VITALS: BP 124/69
[2017-04-24 16:04] VITALS: BP 111/62
[2017-04-24 19:54] VITALS: BP 114/59
[2017-04-24 23:25] VITALS: BP 116/60
[2017-04-25 06:15] LABS: PROTHROMBIN TIME 34.9 SEC (10.2-12.9)
[2017-04-25 07:29] VITALS: BP 124/66
[2017-04-25 15:20] VITALS: BP 108/58
== END 2017-04-25 20:15 | DRG 64 ==
LOC: EME 14:14 → 5SOUTH 19:55 → EDOF 19:55 → ENRESERV 19:56 → 5SOUTH 20:52
PROVIDERS: Emergency Medicine; Hospitalist; Internal Medicine; Specialist
DX: I63.40 Cerebral infarction due to embolism of unspecified cerebral artery (principal); I26.99 Other pulmonary embolism without acute cor pulmonale; I81 Portal vein thrombosis; I47.2 Ventricular tachycardia; I24.0 Acute coronary thrombosis not resulting in myocardial infarction; I47.1 Supraventricular tachycardia; D75.81 Myelofibrosis; Z86.711 Personal history of pulmonary embolism; H40.219 Acute angle-closure glaucoma, unspecified eye; Z90.81 Acquired absence of spleen; Q21.1 Atrial septal defect; C94.6 Myelodysplastic disease, not elsewhere classified; Q27.33 Arteriovenous malformation of digestive system vessel; Z85.3 Personal history of malignant neoplasm of breast; I27.2 Other secondary pulmonary hypertension; D47.3 Essential (hemorrhagic) thrombocythemia; I69.354 Hemiplegia and hemiparesis following cerebral infarction affecting left non-dominant side; K57.90 Diverticulosis of intestine, part unspecified, without perforation or abscess without bleeding; Z79.82 Long term (current) use of aspirin; Z79.01 Long term (current) use of anticoagulants; Z79.899 Other long term (current) drug therapy; I07.1 Rheumatic tricuspid insufficiency; G62.9 Polyneuropathy, unspecified; I35.0 Nonrheumatic aortic (valve) stenosis; K21.9 Gastro-esophageal reflux disease without esophagitis; I25.2 Old myocardial infarction; H53.8 Other visual disturbances; D64.9 Anemia, unspecified; D70.4 Cyclic neutropenia; F03.90 Unspecified dementia, unspecified severity, without behavioral disturbance, psychotic disturbance, mood disturbance, and anxiety; D69.59 Other secondary thrombocytopenia; Z96.642 Presence of left artificial hip joint; G25.81 Restless legs syndrome; R29.810 Facial weakness
CPT/HCPCS: 70450; 70551; 80048; 80053; 80061; 81003; 83036; 85025; 85027; 85610; 85730; 87086; 93005; 93306; 93970; 94799; 97530 GO; 97530 GP; 99281; 99285; G0378; J1644; J1650

== ENCOUNTER 2017-05-19 16:22 | Inpatient (IN) | payer OTHER, MEDICARE ==
[~2017-05-19] VITALS: Ht 152.4 cm; Wt 58.0 kg
[~2017-05-19 16:22] MED LIST changes: +HYDROXYUREA500 MG PO; -NASA MIST SALIN75 ML BOTH NARES; +OCEAN NASAL 0.645 ML ALT NARES
[2017-05-19 18:12] LABS: CHLORIDE 108 mEq/L (99-109); POTASSIUM 4.1 mEq/L (3.7-5.4); SODIUM 138 mEq/L (136-147)
[2017-05-19 18:14] LABS: GLUCOSE 89 mg/dL (70-99)
[2017-05-19 18:15] LABS: ANION GAP 9 MEQ/L (2-14)
[2017-05-19 18:16] LABS: TOTAL BILIRUBIN 1.7 mg/dL (0.0-1.0)
[2017-05-19 18:17] LABS: MCHC 33.3 G/DL (30.0-36.0); MCV 102.1 FL (83-99); NRBC (%) 19.4 /100 WBC (0-0); RBC DIS.WIDTH-CV 29.1 % (11.8-14.6); RED BLOOD COUNT 2.35 M/uL (3.80-5.20); WHITE BLOOD COUNT 5.5 K/uL (4.1-10.2)
[2017-05-19 18:18] LABS: ALKALINE PHOSPHATASE 143 IU/L (3-129); GFR ESTIMATE (CALCULATED) > 59 mL/min/
[2017-05-19 18:19] LABS: UREA NITROGEN (BUN) 17 mg/dL (9-23)
[2017-05-19 18:30] LABS: INTER. NORMALIZED RATIO 1.1
[2017-05-19 19:16] LABS: ANISOCYTOSIS 3+; EOSINOPHIL (%) 12.6 % (0-5); EOSINOPHIL COUNT 0.7 K/uL (0-0.3); GIANT PLATELETS 2+; HYPOCHROMASIA 1+; IMMATURE GRANULOCYTE (%) 0.7 % (0.0-0.7); INSTRUMENT ABS NEUTROPHIL CT 2.6 K/uL; LYMPHOCYTE COUNT 1.2 K/uL (1.0-2.8); MACROCYTES 3+; MEAN PLAT.VOLUME 13.5 uM^3 (9.5-12.4); MICROCYTOSIS 2+; MONOCYTE (%) 17.4 % (3-12); NEUTROPHIL (%) 47.7 % (45-76); NEUTROPHIL COUNT 2.6 K/uL (1.8-6.4); OVALOCYTES 1+; PLAT.SUFFICIENCY ADEQUATE; POIKILOCYTOSIS 2+; POLYCHROMASIA 1+; SCHISTOCYTES 1+; TARGET CELLS 1+
[2017-05-19 19:34] LABS: PLATELET COUNT 170 K/uL (156-360)
[2017-05-19 20:22] LABS: ADD MIUA? YES; BILIRUBIN NEGATIVE; BLOOD NEGATIVE; COLOR YELLOW ((YELLOW)); GLUCOSE (STRIP) NEGATIVE; KETONES NEGATIVE; LEUKOCYTES TRACE; NITRITE NEGATIVE; PROTEIN (STRIP) NEGATIVE; UROBILINOGEN 0.2 MG/DL (0.2-1.0)
[2017-05-19 20:31] LABS: BACTERIA RARE /HPF; EPITHELIAL CELLS NONE SEEN /HPF; HYALINE CASTS 0-5 /LPF; MUCUS NONE SEEN /LPF; RED BLOOD CELLS 0-5 /HPF (0-5); UCUL ADDED? YES
[2017-05-19] MEDS ORDERED: FERROUS SULFAT325 MG PO (20:57)
[2017-05-19] MEDS ORDERED: HYDROCODON-ACE1 EAC7 PO (20:57)
[2017-05-20] VITALS (11 sets, daily range): BP systolic 108–127; BP diastolic 60–68
[2017-05-20 11:51] LABS: MCV 97.9 FL (83-99)
[2017-05-20 15:50] LABS: HEMATOCRIT 35.8 % (36.0-46.0); MCV 97.8 FL (83-99)
[2017-05-20 21:58] LABS: HEMATOCRIT 33.6 % (36.0-46.0); MCV 98.2 FL (83-99)
[2017-05-21] VITALS (7 sets, daily range): BP systolic 110–130; BP diastolic 60–70
[2017-05-21 05:22] LABS: HEMATOCRIT 33.4 % (36.0-46.0); MCV 97.7 FL (83-99)
[2017-05-21 13:55] LABS: MCV 99.1 FL (83-99)
[2017-05-21 22:00] LABS: HEMATOCRIT 33.2 % (36.0-46.0); MCV 97.6 FL (83-99)
[2017-05-22 04:07] VITALS: BP 109/53
[2017-05-22 06:26] LABS: HEMATOCRIT 33.4 % (36.0-46.0); MCV 99.1 FL (83-99)
[2017-05-22 06:49] LABS: INTER. NORMALIZED RATIO 1.1; PROTHROMBIN TIME 12.2 SEC (10.2-12.9)
[2017-05-22 06:51] LABS: PTT 69.1 SEC (25-37)
[2017-05-22 08:49] VITALS: BP 116/66
[2017-05-22 15:09] LABS: HEMATOCRIT 32.6 % (36.0-46.0); MCV 99.7 FL (83-99)
[2017-05-22 16:08] VITALS: BP 109/70
[2017-05-22 21:43] LABS: HEMATOCRIT 32.7 % (36.0-46.0); MCV 100.3 FL (83-99)
[2017-05-22 22:52] VITALS: BP 114/62
[2017-05-23 06:22] LABS: INTER. NORMALIZED RATIO 1.1; PROTHROMBIN TIME 12.6 SEC (10.2-12.9)
[2017-05-23 06:29] LABS: HEMATOCRIT 32.8 % (36.0-46.0)
[2017-05-23 08:02] VITALS: BP 116/58
[2017-05-23 14:15] LABS: HEMATOCRIT 33.2 % (36.0-46.0); MCV 100.9 FL (83-99)
[2017-05-23 16:41] VITALS: BP 107/56
[2017-05-23 21:48] LABS: HEMATOCRIT 33.5 % (36.0-46.0); MCV 100.9 FL (83-99)
[2017-05-23 23:00] VITALS: BP 109/61
[2017-05-24 06:03] LABS: HEMATOCRIT 30.8 % (36.0-46.0); MCV 101.3 FL (83-99)
[2017-05-24 06:07] LABS: INTER. NORMALIZED RATIO 1.3; PROTHROMBIN TIME 14.7 SEC (10.2-12.9)
[2017-05-24 07:27] VITALS: BP 119/65
[2017-05-24 13:39] LABS: HEMATOCRIT 32.1 % (36.0-46.0); MCV 100.6 FL (83-99)
[2017-05-24 16:00] VITALS: BP 123/62
[2017-05-24 22:13] LABS: HEMATOCRIT 30.7 % (36.0-46.0)
[2017-05-25 00:06] VITALS: BP 105/55
[2017-05-25 06:08] LABS: HEMATOCRIT 30.7 % (36.0-46.0); MCV 101.3 FL (83-99)
[2017-05-25 06:35] LABS: INTER. NORMALIZED RATIO 1.6; PROTHROMBIN TIME 17.6 SEC (10.2-12.9)
[2017-05-25 08:00] VITALS: BP 118/56
[2017-05-25 11:00] VITALS: BP 108/56
[2017-05-25 13:43] LABS: HEMATOCRIT 33.6 % (36.0-46.0); MCV 102.1 FL (83-99)
[2017-05-25 16:09] VITALS: BP 109/58
[2017-05-25 23:02] VITALS: BP 112/59
[2017-05-26 06:35] LABS: PROTHROMBIN TIME 22.4 SEC (10.2-12.9)
[2017-05-26 06:37] LABS: PTT 92.9 SEC (25-37)
[2017-05-26 07:47] VITALS: BP 114/57
[2017-05-26] MEDS ORDERED: PROZAC20 MG PO (13:43)
[2017-05-26] MEDS ORDERED: MULTIPLE VITAM1 EAC1 PO (13:43)
[2017-05-26] MEDS ORDERED: METOPROLOL SUCC25 MG PO (13:43)
[2017-05-26] MEDS ORDERED: LIPITOR80 MG PO (13:43)
[2017-05-26] MEDS ORDERED: FERROUS SULFAT325 MG PO (13:43)
[2017-05-26] MEDS ORDERED: PRILOSEC20 MG PO (13:43)
[2017-05-26] MEDS ORDERED: COUMADIN4 MG PO (13:43)
[2017-05-26] MEDS ORDERED: TYLENOL REGULA325 MG PO (13:43)
[2017-05-26] MEDS ORDERED: HYDROCODON-ACE1 EAC7 PO (13:43)
[2017-05-26] MEDS ORDERED: FOLIC ACID0.4 MG PO (13:43)
[2017-05-26] MEDS ORDERED: VITAMIN B-1100 MG PO (13:43)
== END 2017-05-26 14:40 | disposition home health service (06) | DRG 841 ==
LOC: EME 16:22 → EDOF 22:50 → 5EAST 22:50 → ENRESERV 23:06 → 5EAST 05-20 00:55
PROVIDERS: Emergency Medicine; Internal Medicine
PROC: 30233N1 Transfusion of Nonautologous Red Blood Cells into Peripheral Vein, Percutaneous Approach (ICD-10-PCS; principal; 2017-05-20)
DX: C94.6 Myelodysplastic disease, not elsewhere classified (principal); I69.354 Hemiplegia and hemiparesis following cerebral infarction affecting left non-dominant side; I27.2 Other secondary pulmonary hypertension; R19.5 Other fecal abnormalities; R82.71 Bacteriuria; K64.8 Other hemorrhoids; E78.5 Hyperlipidemia, unspecified; F32.9 Major depressive disorder, single episode, unspecified; Z96.642 Presence of left artificial hip joint; Q21.1 Atrial septal defect; Z79.01 Long term (current) use of anticoagulants; Z86.711 Personal history of pulmonary embolism; Z86.718 Personal history of other venous thrombosis and embolism; Z85.3 Personal history of malignant neoplasm of breast; Z87.01 Personal history of pneumonia (recurrent); Z87.891 Personal history of nicotine dependence; Z90.81 Acquired absence of spleen
CPT/HCPCS: 71020; 74177; 80053; 81003; 85014; 85018; 85025; 85610; 85730; 86850; 86900; 86901; 86920; 87077; 87086 GA; 87186; 87493; 87506; 99281; 99285; C9113; J7040; P9016

== ENCOUNTER 2017-05-29 10:08 | Inpatient (IN) | payer OTHER, MEDICARE ==
[~2017-05-29] VITALS: Ht 152.4 cm; Wt 61.1 kg
[~2017-05-29 10:08] MED LIST changes: +COUMADIN4 MG PO; +HYDROCODON-ACE1 EAC7 PO
[2017-05-29 10:49] LABS: HEMATOCRIT 32.2 % (36.0-46.0); MCH 33.1 PG (29.0-34.0); MCHC 32.6 G/DL (30.0-36.0); MCV 101.6 FL (83-99); NRBC (%) 11.1 /100 WBC (0-0); PLATELET COUNT 218 K/uL (156-360); RBC DIS.WIDTH-CV 27.1 % (11.8-14.6); RBC DIS.WIDTH-SD 94.4 % (39-53); WHITE BLOOD COUNT 6.9 K/uL (4.1-10.2)
[2017-05-29 10:52] LABS: INTER. NORMALIZED RATIO 2.2; PROTHROMBIN TIME 24.4 SEC (10.2-12.9)
[2017-05-29 11:00] LABS: CHLORIDE 108 mEq/L (99-109); POTASSIUM 3.6 mEq/L (3.7-5.4); SODIUM 139 mEq/L (136-147)
[2017-05-29 11:02] LABS: GLUCOSE 94 mg/dL (70-99)
[2017-05-29 11:03] LABS: ANION GAP 10 MEQ/L (2-14)
[2017-05-29 11:04] LABS: TOTAL BILIRUBIN 1.6 mg/dL (0.0-1.0)
[2017-05-29 11:05] LABS: SERUM ETHYL ALCOHOL < 10 mg/dL
[2017-05-29 11:06] LABS: ALKALINE PHOSPHATASE 144 IU/L (3-129); GFR ESTIMATE (CALCULATED) > 59 mL/min/
[2017-05-29 11:07] LABS: DIRECT BILIRUBIN 0.6 mg/dL (0.0-0.3); UREA NITROGEN (BUN) 13 mg/dL (9-23)
[2017-05-29 11:09] LABS: LIPASE 30 U/L (1.0-51.0); TROP-I INTERPRETATION NEGATIVE; TROPONIN-I 0.09 ng/mL (0.0-0.30)
[2017-05-29 11:10] LABS: CREATINE KINASE 73 IU/L (1-294); TOTAL CK 73 IU/L (1-294)
[2017-05-29 11:18] LABS: CK-MB 1.3 ng/mL (0.0-4.9)
[2017-05-29 11:40] LABS: ABS NEUTROPHIL COUNT 4.7; ANISOCYTOSIS 3+; BAND NEUTROPHILS 7.9 % (0-8.0); BASOPHILS 1.3 %; EOSINOPHIL ABS CT 0.5; HEMATOLOGY COMMENT 1 SN; INSTRUMENT ABS NEUTROPHIL CT 3.7 K/uL; LYMPHOCYTES 7.9 % (15.0-45.0); MACROCYTES 3+; NUCLEATED RBC'S 21.1; OVALOCYTES 1+; PLAT.SUFFICIENCY ADEQUATE; POLYCHROMASIA 1+; SCHISTOCYTES 1+; SEG.NEUTROPHILS 60.5 % (46.0-76.0); SPHEROCYTES 1+; TARGET CELLS 2+
[2017-05-29 11:53] LABS: EOSINOPHILS 6.6 % (0-5.0); RED BLOOD COUNT 3.17 M/uL (3.80-5.20)
[2017-05-29 12:58] LABS: ADD MIUA? YES; BILIRUBIN NEGATIVE; BLOOD NEGATIVE; COLOR STRAW ((YELLOW)); GLUCOSE (STRIP) NEGATIVE; KETONES NEGATIVE; LEUKOCYTES TRACE; NITRITE NEGATIVE; PROTEIN (STRIP) NEGATIVE; SPECIFIC GRAVITY 1.006 (1.000-1.030); UROBILINOGEN 0.2 MG/DL (0.2-1.0)
[2017-05-29 13:02] LABS: BACTERIA NONE SEEN /HPF; EPITHELIAL CELLS RARE /HPF; MUCUS NONE SEEN /LPF; RED BLOOD CELLS 0-5 /HPF (0-5); UCUL ADDED? YES
[2017-05-29] MEDS ORDERED: CIPROFLOXACIN250 MG PO (16:23)
[2017-05-29] MEDS ORDERED: LYRICA225 MG PO (16:23)
[2017-05-29] MEDS ORDERED: ZOLPIDEM TARTRA10 MG PO (16:24)
[2017-05-29] MEDS ORDERED: ALPRAZOLAM0.25 M2 PO (16:24)
[2017-05-29] MEDS ORDERED: CYCLOBENZAPRINE5 MG PO (16:25)
[2017-05-29] MEDS ORDERED: LOPRESSOR25 MG PO (16:27)
[2017-05-29 19:10] VITALS: BP 115/64
[2017-05-30] VITALS (7 sets, daily range): BP systolic 107–129; BP diastolic 56–68
[2017-05-30 06:31] LABS: INTER. NORMALIZED RATIO 1.8; PROTHROMBIN TIME 20.7 SEC (10.2-12.9)
[2017-05-31 07:20] LABS: INTER. NORMALIZED RATIO 1.9; PROTHROMBIN TIME 20.9 SEC (10.2-12.9)
[2017-05-31 07:45] VITALS: BP 116/63
[2017-05-31 09:38] LABS: MCH 34.6 PG (29.0-34.0); MCHC 33.6 G/DL (30.0-36.0); MCV 102.8 FL (83-99); NRBC (%) 20.2 /100 WBC (0-0); RBC DIS.WIDTH-CV 28.2 % (11.8-14.6); RBC DIS.WIDTH-SD 100.2 % (39-53); RED BLOOD COUNT 3.21 M/uL (3.80-5.20)
[2017-05-31 09:40] LABS: PLATELET COUNT 320 K/uL (156-360)
[2017-05-31 09:51] LABS: ANION GAP 8 MEQ/L (2-14); CHLORIDE 107 MEQ/L (99-109); GFR ESTIMATE (CALCULATED) > 59 mL/min/; GLUCOSE 93 mg/dL (70-99); SAMPLE HEMOLYSIS CHECK 1; SAMPLE ICTERIC CHECK 0; SAMPLE LIPEMIA CHECK 0; SODIUM 140 MEQ/L (136-147); UREA NITROGEN (BUN) 12 mg/dL (9-23)
[2017-05-31 09:53] LABS: POTASSIUM 4.9 MEQ/L (3.7-5.4)
[2017-05-31 11:38] VITALS: BP 122/64
[2017-05-31 15:43] VITALS: BP 111/59
[2017-05-31 19:29] VITALS: BP 125/65
[2017-05-31 23:08] VITALS: BP 125/63
[2017-06-01 03:39] VITALS: BP 118/61
[2017-06-01 07:20] VITALS: BP 123/75
[2017-06-01 08:12] LABS: INTER. NORMALIZED RATIO 2.5; PROTHROMBIN TIME 28.5 SEC (10.2-12.9)
[2017-06-01 15:56] VITALS: BP 118/64
[2017-06-01 23:35] VITALS: BP 113/59
[2017-06-02 07:10] VITALS: BP 141/69
[2017-06-02 07:44] LABS: INTER. NORMALIZED RATIO 2.7; PROTHROMBIN TIME 30.4 SEC (10.2-12.9)
[2017-06-02] MEDS ORDERED: DELTASONE20 M1 PO (08:37)
[2017-06-02 16:03] VITALS: BP 129/65
== END 2017-06-02 16:32 | disposition home health service (06) | DRG 191 ==
LOC: EME 10:08 → 2EAST 15:58 → EDOF 15:58 → ENRESERV 16:16 → 2EAST 19:05
PROVIDERS: Emergency Medicine; Family Medicine; Internal Medicine
DX: J44.1 Chronic obstructive pulmonary disease with (acute) exacerbation (principal); C94.6 Myelodysplastic disease, not elsewhere classified; N39.0 Urinary tract infection, site not specified; D64.9 Anemia, unspecified; I69.354 Hemiplegia and hemiparesis following cerebral infarction affecting left non-dominant side; W19.XXXA Unspecified fall, initial encounter; Y92.009 Unspecified place in unspecified non-institutional (private) residence as the place of occurrence of the external cause; K92.2 Gastrointestinal hemorrhage, unspecified; G25.81 Restless legs syndrome; D68.9 Coagulation defect, unspecified; E78.5 Hyperlipidemia, unspecified; J98.11 Atelectasis; Z86.711 Personal history of pulmonary embolism; Z99.81 Dependence on supplemental oxygen; Z85.3 Personal history of malignant neoplasm of breast; Z87.891 Personal history of nicotine dependence; Z96.642 Presence of left artificial hip joint; Z90.81 Acquired absence of spleen
CPT/HCPCS: 70450; 71020; 71275; 80048; 80076; 81003; 82140; 82550; 82553; 83605; 83690; 83880; 84484; 85025; 85027; 85610; 85730; 87086; 93005; 94640; 94640 76; 94799; 99202; 99281; 99285; G0480; J0456; J2920; J7030; J7512

== ENCOUNTER 2017-06-04 12:15 | Inpatient (IN) | payer OTHER, MEDICARE ==
[~2017-06-04] VITALS: Ht 152.4 cm; Wt 62.6 kg
[~2017-06-04 12:15] MED LIST changes: +CIPROFLOXACIN250 MG PO; +CYCLOBENZAPRINE5 MG PO; +DELTASONE20 M1 PO; +LOPRESSOR25 MG PO
[2017-06-04 14:16] LABS: HEMATOCRIT 33.8 % (36.0-46.0); MCHC 32.5 G/DL (30.0-36.0); MCV 101.5 FL (83-99); MEAN PLAT.VOLUME 13.1 uM^3 (9.5-12.4); NRBC (%) 12.5 /100 WBC (0-0); PLATELET COUNT 372 K/uL (156-360); RBC DIS.WIDTH-CV 27.9 % (11.8-14.6); RBC DIS.WIDTH-SD 98.5 % (39-53); RED BLOOD COUNT 3.33 M/uL (3.80-5.20); WHITE BLOOD COUNT 11.8 K/uL (4.1-10.2)
[2017-06-04 14:17] LABS: INTER. NORMALIZED RATIO 1.7; PROTHROMBIN TIME 18.6 SEC (10.2-12.9)
[2017-06-04 14:19] LABS: CHLORIDE 107 mEq/L (99-109); POTASSIUM 4.3 mEq/L (3.7-5.4); PTT 31.3 SEC (25-37); SODIUM 141 mEq/L (136-147)
[2017-06-04 14:20] LABS: MAGNESIUM 2.1 mg/dL (1.3-2.7)
[2017-06-04 14:21] LABS: GLUCOSE 123 mg/dL (70-99)
[2017-06-04 14:22] LABS: ANION GAP 14 MEQ/L (2-14)
[2017-06-04 14:23] LABS: TOTAL BILIRUBIN 1.5 mg/dL (0.0-1.0)
[2017-06-04 14:25] LABS: ALKALINE PHOSPHATASE 142 IU/L (3-129); GFR ESTIMATE (CALCULATED) > 59 mL/min/
[2017-06-04 14:28] LABS: CREATINE KINASE 40 IU/L (1-294); TOTAL CK 40 IU/L (1-294)
[2017-06-04 14:30] LABS: TROP-I INTERPRETATION INDETERMINATE; TROPONIN-I 0.44 ng/mL (0.0-0.30)
[2017-06-04 14:34] LABS: CK-MB 2.3 ng/mL (0.0-4.9)
[2017-06-04 14:35] LABS: UREA NITROGEN (BUN) 26 mg/dL (9-23)
[2017-06-04 15:01] LABS: ABS NEUTROPHIL COUNT 9.9; ANISOCYTOSIS 3+; BAND NEUTROPHILS 21.3 % (0-8.0); EOSINOPHIL ABS CT 0.2; EOSINOPHILS 1.8 % (0-5.0); INSTRUMENT ABS NEUTROPHIL CT 8.9 K/uL; LYMPHOCYTES 4.4 % (15.0-45.0); MACROCYTES 3+; NUCLEATED RBC'S 12.4; OVALOCYTES 1+; PLAT.SUFFICIENCY ADEQUATE; POIKILOCYTOSIS 2+; POLYCHROMASIA 1+; SCHISTOCYTES 1+; SEG.NEUTROPHILS 62.8 % (46.0-76.0); SPHEROCYTES 2+; TEAR DROP CELLS 1+
[2017-06-04 19:06] LABS: ADD MIUA? NO; BILIRUBIN NEGATIVE; BLOOD NEGATIVE; COLOR YELLOW ((YELLOW)); GLUCOSE (STRIP) NEGATIVE; KETONES NEGATIVE; LEUKOCYTES NEGATIVE; NITRITE NEGATIVE; PROTEIN (STRIP) 30; SPECIFIC GRAVITY 1.021 (1.000-1.030); UROBILINOGEN 0.2 MG/DL (0.2-1.0)
[2017-06-04 20:05] LABS: UCUL ADDED? NO
[2017-06-04 20:36] LABS: TROP-I INTERPRETATION NEGATIVE
[2017-06-04] MEDS ORDERED: COUMADIN4 MG PO (20:55)
[2017-06-04 22:49] LABS: BASE EXCESS 1.9 mEq/L (-3 to +3); BICARBONATE 25.6 mEq/L (22-26); CARBOXY HGB 1.6 % (0-5); METHEMOGLOBIN 1.5 % (0-1.5); PO2 57 mm Hg (80-100); pH 7.46 (7.35-7.45)
[2017-06-04 22:50] LABS: COMMENTS - BLOOD GASES C+A+; DEVICE NC; O2 FLOW 2 L/MIN; PCO2 36 mm Hg (35-45); SITE RB
[2017-06-05 00:55] VITALS: BP 111/67
[2017-06-05 02:23] LABS: INTER. NORMALIZED RATIO 1.6; PROTHROMBIN TIME 18.4 SEC (10.2-12.9)
[2017-06-05 02:25] LABS: PTT 34.6 SEC (25-37)
[2017-06-05 05:42] VITALS: BP 109/67
[2017-06-05 07:37] VITALS: BP 116/69
[2017-06-05 09:17] LABS: Estimated Average Glucose 114 mg/dL (70-123); HEMOGLOBIN A1c (GLYCOHEMOGLOB) 5.6 % HGB (Below 5.7)
[2017-06-05 09:22] LABS: INTER. NORMALIZED RATIO 1.6; PROTHROMBIN TIME 18.2 SEC (10.2-12.9)
[2017-06-05 09:27] LABS: PTT 61.1 SEC (25-37)
[2017-06-05 09:34] LABS: ALKALINE PHOSPHATASE 119 IU/L (3-129); ANION GAP 10 MEQ/L (2-14); CHLORIDE 106 MEQ/L (99-109); GFR ESTIMATE (CALCULATED) > 59 mL/min/; HDL CHOLESTEROL 46 MG/DL (Desirable>=50); LDL CHOLESTEROL 72 mg/dL (Desirable<100); NON-HDL CHOLESTEROL 106 mg/dL (Desirable<160); POTASSIUM 4.8 MEQ/L (3.7-5.4); SAMPLE HEMOLYSIS CHECK 0; SAMPLE ICTERIC CHECK 0; SAMPLE LIPEMIA CHECK 0; SODIUM 139 MEQ/L (136-147); TOTAL BILIRUBIN 1.7 MG/DL (0.0-1.0); TOTAL CHOLESTEROL 152 mg/dL (Desirable<200); TRIGLYCERIDES 170 MG/DL (Normal: <150); UREA NITROGEN (BUN) 21 mg/dL (9-23)
[2017-06-05 09:35] LABS: GLUCOSE 89 mg/dL (70-99)
[2017-06-05 10:04] LABS: TROP-I INTERPRETATION INDETERMINATE; TROPONIN-I 0.41 ng/mL (0.0-0.30)
[2017-06-05 11:15] VITALS: BP 114/65
[2017-06-05 15:29] VITALS: BP 128/75
[2017-06-05 20:00] VITALS: BP 117/64
[2017-06-06] VITALS: BP 122/70
[2017-06-06 07:26] VITALS: BP 124/81
[2017-06-06 15:28] VITALS: BP 112/61
[2017-06-06 16:53] LABS: INTER. NORMALIZED RATIO 1.8; PROTHROMBIN TIME 20.5 SEC (10.2-12.9)
[2017-06-06 17:14] LABS: PTT 72.9 SEC (25-37)
[2017-06-06 23:52] VITALS: BP 116/65
[2017-06-07 05:58] VITALS: BP 114/69
[2017-06-07 08:00] VITALS: BP 112/67
[2017-06-07 08:42] LABS: HEMATOCRIT 32.9 % (36.0-46.0); MCH 34.2 PG (29.0-34.0); MCHC 32.8 G/DL (30.0-36.0); MCV 104.1 FL (83-99); MEAN PLAT.VOLUME 13.5 uM^3 (9.5-12.4); PLATELET COUNT 394 K/uL (156-360); RBC DIS.WIDTH-CV 28.2 % (11.8-14.6); RBC DIS.WIDTH-SD 102.8 % (39-53); RED BLOOD COUNT 3.16 M/uL (3.80-5.20); WHITE BLOOD COUNT 9.3 K/uL (4.1-10.2)
[2017-06-07 10:50] VITALS: BP 108/58
[2017-06-07 16:13] LABS: HEMATOCRIT 32.8 % (36.0-46.0); MCV 104.5 FL (83-99)
[2017-06-07 16:19] VITALS: BP 114/63
[2017-06-07 16:25] LABS: TROP-I INTERPRETATION NEGATIVE; TROPONIN-I 0.22 ng/mL (0.0-0.30)
[2017-06-08 00:02] VITALS: BP 114/57
[2017-06-08 06:05] LABS: HEMATOCRIT 29.4 % (36.0-46.0); MCH 33.9 PG (29.0-34.0); MCHC 32.7 G/DL (30.0-36.0); MCV 103.9 FL (83-99); NRBC (%) 8.4 /100 WBC (0-0); PLATELET COUNT 398 K/uL (156-360); RBC DIS.WIDTH-CV 28.2 % (11.8-14.6); RBC DIS.WIDTH-SD 101.1 % (39-53); RED BLOOD COUNT 2.83 M/uL (3.80-5.20); WHITE BLOOD COUNT 8.9 K/uL (4.1-10.2)
[2017-06-08 08:17] VITALS: BP 112/67
[2017-06-08 11:30] LABS: HEMATOCRIT 31.2 % (36.0-46.0)
[2017-06-08 12:25] VITALS: BP 100/60
[2017-06-08 16:12] VITALS: BP 109/66
[2017-06-08 18:02] VITALS: BP 102/52
[2017-06-08 23:25] VITALS: BP 106/59
[2017-06-09 06:30] VITALS: BP 114/62
[2017-06-09 07:10] VITALS: BP 122/72
[2017-06-09 15:47] VITALS: BP 122/67
[2017-06-09 16:01] LABS: INTER. NORMALIZED RATIO 1.2; PROTHROMBIN TIME 12.7 SEC (10.2-12.9)
[2017-06-09 21:53] VITALS: BP 111/58
[2017-06-09 23:34] VITALS: BP 100/57
[2017-06-10] VITALS (7 sets, daily range): BP systolic 96–118; BP diastolic 55–65
[2017-06-10 06:44] LABS: INTER. NORMALIZED RATIO 1.1; PROTHROMBIN TIME 12.2 SEC (10.2-12.9)
[2017-06-10 06:47] LABS: PTT 58.1 SEC (25-37)
[2017-06-10 16:04] LABS: HEMATOCRIT 26.1 % (36.0-46.0); MCV 102.8 FL (83-99)
[2017-06-11] VITALS (7 sets, daily range): BP systolic 95–134; BP diastolic 52–68
[2017-06-11 07:00] LABS: HEMATOCRIT 24.5 % (36.0-46.0); MCH 32.5 PG (29.0-34.0); MCHC 31.8 G/DL (30.0-36.0); MCV 102.1 FL (83-99); MEAN PLAT.VOLUME 13.1 uM^3 (9.5-12.4); NRBC (%) 7.8 /100 WBC (0-0); PLATELET COUNT 474 K/uL (156-360); RBC DIS.WIDTH-CV 28.4 % (11.8-14.6); RBC DIS.WIDTH-SD 100.6 % (39-53); WHITE BLOOD COUNT 8.6 K/uL (4.1-10.2)
[2017-06-11 07:09] LABS: INTER. NORMALIZED RATIO 1.2; PROTHROMBIN TIME 13.3 SEC (10.2-12.9)
[2017-06-11 07:12] LABS: PTT 60.2 SEC (25-37)
[2017-06-11 07:29] LABS: ALKALINE PHOSPHATASE 117 IU/L (3-129); ANION GAP 7 MEQ/L (2-14); CHLORIDE 106 MEQ/L (99-109); GFR ESTIMATE (CALCULATED) > 59 mL/min/; GLUCOSE 98 mg/dL (70-99); POTASSIUM 4.6 MEQ/L (3.7-5.4); SAMPLE HEMOLYSIS CHECK 0; SAMPLE ICTERIC CHECK 0; SAMPLE LIPEMIA CHECK 0; SODIUM 141 MEQ/L (136-147); UREA NITROGEN (BUN) 22 mg/dL (9-23)
[2017-06-11 07:30] LABS: TOTAL BILIRUBIN 1.3 MG/DL (0.0-1.0)
[2017-06-11 09:26] LABS: IRON 69 MCG/DL (35-150)
[2017-06-11 09:37] LABS: FERRITIN 204 NG/ML (10-291)
[2017-06-11 13:14] LABS: HEMATOCRIT 27.1 % (36.0-46.0); MCV 103.4 FL (83-99)
[2017-06-11 18:38] LABS: INTERNAL CONTROL VALID? YES
[2017-06-12] VITALS (11 sets, daily range): BP systolic 95–120; BP diastolic 52–67
[2017-06-12 05:54] LABS: INTER. NORMALIZED RATIO 1.3; PROTHROMBIN TIME 14.3 SEC (10.2-12.9)
[2017-06-12 05:57] LABS: PTT 59.1 SEC (25-37)
[2017-06-12 06:10] LABS: LACTATE DEHYDROGENASE 615 IU/L (20-246)
[2017-06-12 08:56] LABS: ANION GAP 8 MEQ/L (2-14); CHLORIDE 106 MEQ/L (99-109); GFR ESTIMATE (CALCULATED) > 59 mL/min/; GLUCOSE 96 mg/dL (70-99); POTASSIUM 4.4 MEQ/L (3.7-5.4); SODIUM 141 MEQ/L (136-147); UREA NITROGEN (BUN) 19 mg/dL (9-23)
[2017-06-12 09:05] LABS: HEMATOCRIT 22.6 % (36.0-46.0); MCH 31.7 PG (29.0-34.0); MCHC 30.5 G/DL (30.0-36.0); MCV 103.7 FL (83-99); MEAN PLAT.VOLUME 13.6 uM^3 (9.5-12.4); PLATELET COUNT 469 K/uL (156-360); RBC DIS.WIDTH-CV 28.3 % (11.8-14.6); RED BLOOD COUNT 2.18 M/uL (3.80-5.20); WHITE BLOOD COUNT 10.7 K/uL (4.1-10.2)
[2017-06-12 23:36] LABS: HEMATOCRIT 28.9 % (36.0-46.0); MCH 31.4 PG (29.0-34.0); MCHC 32.9 G/DL (30.0-36.0); MCV 95.4 FL (83-99); MEAN PLAT.VOLUME 12.9 uM^3 (9.5-12.4); NRBC (%) 11.6 /100 WBC (0-0); PLATELET COUNT 468 K/uL (156-360); RBC DIS.WIDTH-CV 24.4 % (11.8-14.6); RBC DIS.WIDTH-SD 75.7 % (39-53); RED BLOOD COUNT 3.03 M/uL (3.80-5.20); WHITE BLOOD COUNT 12.6 K/uL (4.1-10.2)
[2017-06-13] VITALS (7 sets, daily range): BP systolic 92–141; BP diastolic 57–75
[2017-06-13 05:33] LABS: HEMATOCRIT 30.1 % (36.0-46.0); MCH 31.1 PG (29.0-34.0); MCHC 31.9 G/DL (30.0-36.0); MCV 97.4 FL (83-99); MEAN PLAT.VOLUME 13.3 uM^3 (9.5-12.4); PLATELET COUNT 464 K/uL (156-360); RBC DIS.WIDTH-CV 25.1 % (11.8-14.6); RBC DIS.WIDTH-SD 81.8 % (39-53); RED BLOOD COUNT 3.09 M/uL (3.80-5.20); WHITE BLOOD COUNT 11.3 K/uL (4.1-10.2)
[2017-06-13 05:46] LABS: INTER. NORMALIZED RATIO 1.2; PROTHROMBIN TIME 13.8 SEC (10.2-12.9)
[2017-06-13 05:53] LABS: PTT 44.5 SEC (25-37)
[2017-06-14 03:58] VITALS: BP 105/61
[2017-06-14 06:45] LABS: HEMATOCRIT 31.2 % (36.0-46.0); MCH 32.3 PG (29.0-34.0); MCV 97.8 FL (83-99); MEAN PLAT.VOLUME 13.1 uM^3 (9.5-12.4); NRBC (%) 21.6 /100 WBC (0-0); PLATELET COUNT 436 K/uL (156-360); RBC DIS.WIDTH-CV 24.9 % (11.8-14.6); RBC DIS.WIDTH-SD 82.4 % (39-53); RED BLOOD COUNT 3.19 M/uL (3.80-5.20); WHITE BLOOD COUNT 9.4 K/uL (4.1-10.2)
[2017-06-14 06:59] LABS: INTER. NORMALIZED RATIO 1.3; PROTHROMBIN TIME 14.6 SEC (10.2-12.9)
[2017-06-14 07:02] LABS: PTT 79.2 SEC (25-37)
[2017-06-14 07:14] VITALS: BP 107/58
[2017-06-14 07:57] LABS: ANION GAP 10 MEQ/L (2-14); CHLORIDE 109 MEQ/L (99-109); GFR ESTIMATE (CALCULATED) > 59 mL/min/; GLUCOSE 89 mg/dL (70-99); POTASSIUM 4.4 MEQ/L (3.7-5.4); SAMPLE HEMOLYSIS CHECK 0; SAMPLE ICTERIC CHECK 0; SAMPLE LIPEMIA CHECK 0; SODIUM 144 MEQ/L (136-147); UREA NITROGEN (BUN) 10 mg/dL (9-23)
[2017-06-14 12:55] VITALS: BP 121/56
[2017-06-14 16:06] VITALS: BP 117/68
[2017-06-14 19:42] VITALS: BP 1626/82
[2017-06-14 23:43] VITALS: BP 131/67
[2017-06-15 04:01] VITALS: BP 113/67
[2017-06-15 06:21] LABS: HEMATOCRIT 29.8 % (36.0-46.0); MCHC 31.5 G/DL (30.0-36.0); MCV 98.3 FL (83-99); MEAN PLAT.VOLUME 12.9 uM^3 (9.5-12.4); NRBC (%) 21.3 /100 WBC (0-0); PLATELET COUNT 393 K/uL (156-360); RBC DIS.WIDTH-CV 24.3 % (11.8-14.6); RBC DIS.WIDTH-SD 81.7 % (39-53); RED BLOOD COUNT 3.03 M/uL (3.80-5.20); WHITE BLOOD COUNT 9.6 K/uL (4.1-10.2)
[2017-06-15 06:29] LABS: INTER. NORMALIZED RATIO 1.4; PROTHROMBIN TIME 15.1 SEC (10.2-12.9)
[2017-06-15 08:21] VITALS: BP 116/62
[2017-06-15 11:35] VITALS: BP 117/67
[2017-06-15 15:30] VITALS: BP 121/68
[2017-06-15 19:50] VITALS: BP 124/64
[2017-06-15 23:48] VITALS: BP 121/64
[2017-06-16 03:57] VITALS: BP 118/68
[2017-06-16 06:19] LABS: MCH 32.4 PG (29.0-34.0); MCHC 32.9 G/DL (30.0-36.0); MCV 98.4 FL (83-99); MEAN PLAT.VOLUME 12.8 uM^3 (9.5-12.4); NRBC (%) 20.5 /100 WBC (0-0); PLATELET COUNT 343 K/uL (156-360); RBC DIS.WIDTH-CV 24.6 % (11.8-14.6); RBC DIS.WIDTH-SD 82.1 % (39-53); RED BLOOD COUNT 3.15 M/uL (3.80-5.20); WHITE BLOOD COUNT 11.6 K/uL (4.1-10.2)
[2017-06-16 06:27] LABS: ANION GAP 9 MEQ/L (2-14); CHLORIDE 106 MEQ/L (99-109); GFR ESTIMATE (CALCULATED) > 59 mL/min/; GLUCOSE 102 mg/dL (70-99); POTASSIUM 3.8 MEQ/L (3.7-5.4); SAMPLE HEMOLYSIS CHECK 0; SAMPLE ICTERIC CHECK 0; SAMPLE LIPEMIA CHECK 0; SODIUM 142 MEQ/L (136-147); UREA NITROGEN (BUN) 11 mg/dL (9-23)
[2017-06-16 06:29] LABS: INTER. NORMALIZED RATIO 1.3
[2017-06-16 06:50] LABS: ABS NEUTROPHIL COUNT 8.7; ANISOCYTOSIS 2+; ATYPICAL LYMPHOCYTE 1.2 %; BAND NEUTROPHILS 6.8 % (0-8.0); BURR CELLS 1+; EOSINOPHIL ABS CT 1.5; INSTRUMENT ABS NEUTROPHIL CT 5.5 K/uL; LYMPHOCYTES 3.4 % (15.0-45.0); MACROCYTES 2+; MICROCYTOSIS 1+; MYELOCYTES 1.1 %; PLAT.SUFFICIENCY ADEQUATE; POIKILOCYTOSIS 1+; SCHISTOCYTES 1+; SEG.NEUTROPHILS 68.2 % (46.0-76.0); SMUDGE CELLS 27.3; TARGET CELLS 1+
[2017-06-16 07:00] LABS: EOSINOPHILS 12.5 % (0-5.0)
[2017-06-16 07:54] VITALS: BP 124/67
[2017-06-16 11:39] VITALS: BP 115/63
[2017-06-16 20:16] VITALS: BP 120/59
[2017-06-17 00:54] VITALS: BP 117/61
[2017-06-17 03:48] VITALS: BP 119/58
[2017-06-17 07:39] VITALS: BP 123/57
[2017-06-17 08:39] LABS: HEMATOCRIT 31.2 % (36.0-46.0); MCH 30.5 PG (29.0-34.0); MCHC 31.4 G/DL (30.0-36.0); MCV 97.2 FL (83-99); MEAN PLAT.VOLUME 12.3 uM^3 (9.5-12.4); NRBC (%) 25.6 /100 WBC (0-0); PLATELET COUNT 329 K/uL (156-360); RBC DIS.WIDTH-CV 24.4 % (11.8-14.6); RBC DIS.WIDTH-SD 81.3 % (39-53); RED BLOOD COUNT 3.21 M/uL (3.80-5.20); WHITE BLOOD COUNT 9.3 K/uL (4.1-10.2)
[2017-06-17 09:03] LABS: INTER. NORMALIZED RATIO 1.4; PROTHROMBIN TIME 15.2 SEC (10.2-12.9)
[2017-06-17 09:17] LABS: PTT 113.3 SEC (25-37)
[2017-06-17 10:02] LABS: ABS NEUTROPHIL COUNT 5.9; ANISOCYTOSIS 2+; ATYPICAL LYMPHOCYTE 1.5 %; BAND NEUTROPHILS 8.8 % (0-8.0); EOSINOPHIL ABS CT 1.4; EOSINOPHILS 14.7 % (0-5.0); HELMET CELLS 1+; INSTRUMENT ABS NEUTROPHIL CT 3.9 K/uL; LYMPHOCYTES 13.2 % (15.0-45.0); MACROCYTES 2+; MYELOCYTES 1.5 %; NUCLEATED RBC'S 33.8; OVALOCYTES 1+; PLAT.SUFFICIENCY INCREASED; POIKILOCYTOSIS 1+; SEG.NEUTROPHILS 54.4 % (46.0-76.0); SMUDGE CELLS 10.3; STOMATOCYTES 1+; TARGET CELLS 1+
[2017-06-17 10:33] LABS: ANION GAP 11 MEQ/L (2-14); CHLORIDE 110 MEQ/L (99-109); GFR ESTIMATE (CALCULATED) > 59 mL/min/; GLUCOSE 110 mg/dL (70-99); POTASSIUM 4.2 MEQ/L (3.7-5.4); SAMPLE HEMOLYSIS CHECK 0; SAMPLE ICTERIC CHECK 0; SAMPLE LIPEMIA CHECK 0; SODIUM 143 MEQ/L (136-147); UREA NITROGEN (BUN) 11 mg/dL (9-23)
[2017-06-17 11:31] VITALS: BP 126/64
[2017-06-17 16:39] VITALS: BP 118/66
[2017-06-17 19:32] VITALS: BP 124/58
[2017-06-18 00:47] VITALS: BP 137/69
[2017-06-18 04:35] VITALS: BP 132/62
[2017-06-18 06:01] LABS: INTER. NORMALIZED RATIO 1.5; PROTHROMBIN TIME 16.9 SEC (10.2-12.9)
[2017-06-18 06:04] LABS: PTT 67.5 SEC (25-37)
[2017-06-18 07:38] LABS: HEMATOCRIT 30.1 % (36.0-46.0); MCH 30.7 PG (29.0-34.0); MCHC 30.9 G/DL (30.0-36.0); MCV 99.3 FL (83-99); NRBC (%) 23.9 /100 WBC (0-0); PLATELET COUNT 309 K/uL (156-360); RBC DIS.WIDTH-CV 24.6 % (11.8-14.6); RBC DIS.WIDTH-SD 81.9 % (39-53); RED BLOOD COUNT 3.03 M/uL (3.80-5.20); WHITE BLOOD COUNT 9.8 K/uL (4.1-10.2)
[2017-06-18 07:43] VITALS: BP 110/59
[2017-06-18 16:28] VITALS: BP 116/69
[2017-06-19 00:17] VITALS: BP 112/58
[2017-06-19 06:51] LABS: INTER. NORMALIZED RATIO 1.9; PROTHROMBIN TIME 21.2 SEC (10.2-12.9)
[2017-06-19 06:54] LABS: PTT 75.8 SEC (25-37)
[2017-06-19 07:07] LABS: HEMATOCRIT 30.7 % (36.0-46.0); MCH 30.4 PG (29.0-34.0); MCHC 30.6 G/DL (30.0-36.0); MCV 99.4 FL (83-99); MEAN PLAT.VOLUME 13.1 uM^3 (9.5-12.4); NRBC (%) 25.2 /100 WBC (0-0); PLATELET COUNT 308 K/uL (156-360); RBC DIS.WIDTH-CV 24.9 % (11.8-14.6); RBC DIS.WIDTH-SD 84.6 % (39-53); RED BLOOD COUNT 3.09 M/uL (3.80-5.20)
[2017-06-19 07:17] LABS: ANION GAP 8 MEQ/L (2-14); CHLORIDE 108 MEQ/L (99-109); GFR ESTIMATE (CALCULATED) > 59 mL/min/; GLUCOSE 89 mg/dL (70-99); SAMPLE HEMOLYSIS CHECK 0; SAMPLE ICTERIC CHECK 0; SAMPLE LIPEMIA CHECK 0; SODIUM 143 MEQ/L (136-147); UREA NITROGEN (BUN) 12 mg/dL (9-23)
[2017-06-19 07:34] VITALS: BP 125/76
[2017-06-19 07:40] LABS: ABS NEUTROPHIL COUNT 4.9; ANISOCYTOSIS 3+; BAND NEUTROPHILS 14.3 % (0-8.0); EOSINOPHIL ABS CT 1.4; EOSINOPHILS 15.3 % (0-5.0); GIANT PLATELETS 3+; HYPOCHROMASIA 2+; INSTRUMENT ABS NEUTROPHIL CT 3.1 K/uL; LYMPHOCYTES 15.3 % (15.0-45.0); MACROCYTES 2+; NUCLEATED RBC'S 46.9; OVALOCYTES 2+; PLAT.SUFFICIENCY ADEQUATE; POIKILOCYTOSIS 2+; POLYCHROMASIA 1+; SCHISTOCYTES 1+; SEG.NEUTROPHILS 39.8 % (46.0-76.0); SPHEROCYTES 1+; TARGET CELLS 2+
[2017-06-19 15:07] VITALS: BP 105/65
[2017-06-19 23:27] VITALS: BP 101/56
[2017-06-20 06:41] LABS: INTER. NORMALIZED RATIO 1.8; PROTHROMBIN TIME 19.9 SEC (10.2-12.9)
[2017-06-20 06:47] LABS: PTT 36.3 SEC (25-37)
[2017-06-20 07:06] VITALS: BP 139/66
[2017-06-20 15:08] VITALS: BP 119/58
[2017-06-21] VITALS: BP 129/56
[2017-06-21 06:53] LABS: INTER. NORMALIZED RATIO 1.9; PROTHROMBIN TIME 21.9 SEC (10.2-12.9)
[2017-06-21 06:56] LABS: PTT 100.1 SEC (25-37)
[2017-06-21 07:03] VITALS: BP 123/62
[2017-06-21 08:50] LABS: HEMATOCRIT 29.6 % (36.0-46.0); MCH 32.1 PG (29.0-34.0); MCHC 31.8 G/DL (30.0-36.0); MEAN PLAT.VOLUME 13.6 uM^3 (9.5-12.4); NRBC (%) 27.3 /100 WBC (0-0); PLATELET COUNT 354 K/uL (156-360); RBC DIS.WIDTH-CV 25.4 % (11.8-14.6); RED BLOOD COUNT 2.93 M/uL (3.80-5.20); WHITE BLOOD COUNT 9.7 K/uL (4.1-10.2)
[2017-06-21 10:05] LABS: ANION GAP 9 MEQ/L (2-14); CHLORIDE 110 MEQ/L (99-109); GFR ESTIMATE (CALCULATED) > 59 mL/min/; GLUCOSE 93 mg/dL (70-99); POTASSIUM 4.5 MEQ/L (3.7-5.4); SAMPLE HEMOLYSIS CHECK 0; SAMPLE ICTERIC CHECK 0; SAMPLE LIPEMIA CHECK 0; SODIUM 145 MEQ/L (136-147); UREA NITROGEN (BUN) 15 mg/dL (9-23)
[2017-06-21 15:24] VITALS: BP 102/58
[2017-06-21 23:45] VITALS: BP 117/65
[2017-06-22 06:16] LABS: PROTHROMBIN TIME 22.1 SEC (10.2-12.9)
[2017-06-22 07:54] VITALS: BP 123/58
[2017-06-22] MEDS ORDERED: ASPIR-LOW81 MG PO (12:09)
[2017-06-22] MEDS ORDERED: COUMADIN3 MG PO (12:09)
== END 2017-06-22 15:00 | DRG 64 ==
LOC: EME 12:15 → 5SOUTH 22:11 → EDOF 22:11 → ENRESERV 22:14 → 5SOUTH 06-05 00:36
PROVIDERS: Anesthesiology; Emergency Medicine; Family Medicine; Hospitalist; Internal Medicine; Internal Medicine Gastroenterology; Nurse Practitioner Adult Health; Physician Assistant; Physician Assistant Medical; Student in an Organized Health Care Education/Training Program
PROC: B246ZZ4 Ultrasonography of Right and Left Heart, Transesophageal (ICD-10-PCS; principal; 2017-06-09)
PROC: 0D598ZZ Destruction of Duodenum, Via Natural or Artificial Opening Endoscopic (ICD-10-PCS; 2017-06-12)
PROC: 30233N1 Transfusion of Nonautologous Red Blood Cells into Peripheral Vein, Percutaneous Approach (ICD-10-PCS; 2017-06-12)
DX: I63.40 Cerebral infarction due to embolism of unspecified cerebral artery (principal); I26.99 Other pulmonary embolism without acute cor pulmonale; J96.11 Chronic respiratory failure with hypoxia; Q27.33 Arteriovenous malformation of digestive system vessel; Q21.1 Atrial septal defect; G81.94 Hemiplegia, unspecified affecting left nondominant side; D68.9 Coagulation defect, unspecified; K74.60 Unspecified cirrhosis of liver; J43.2 Centrilobular emphysema; C94.6 Myelodysplastic disease, not elsewhere classified; D50.0 Iron deficiency anemia secondary to blood loss (chronic); D50.8 Other iron deficiency anemias; H53.2 Diplopia; I27.20 Pulmonary hypertension, unspecified; K74.69 Other cirrhosis of liver; K57.90 Diverticulosis of intestine, part unspecified, without perforation or abscess without bleeding; K76.6 Portal hypertension; K64.8 Other hemorrhoids; K80.20 Calculus of gallbladder without cholecystitis without obstruction; R13.19 Other dysphagia; R29.810 Facial weakness; Z79.01 Long term (current) use of anticoagulants; Z86.711 Personal history of pulmonary embolism; Z86.718 Personal history of other venous thrombosis and embolism; Z79.899 Other long term (current) drug therapy; Z85.3 Personal history of malignant neoplasm of breast; Z86.73 Personal history of transient ischemic attack (TIA), and cerebral infarction without residual deficits; Z98.1 Arthrodesis status; Z99.81 Dependence on supplemental oxygen; Z90.81 Acquired absence of spleen
CPT/HCPCS: 36600; 70450; 70551; 71010; 74230; 76705; 80048; 80053; 80061; 81003; 82272; 82550; 82553; 82607; 82728; 82746; 82803; 83036; 83540; 83615; 83735; 83880; 84466; 84484; 85014; 85018; 85025; 85027; 85610; 85730; 86850; 86900; 86901; 86920; 92507 GN; 92526 GN; 92610 GN; 92611 GN; 93005; 93312; 93970; 94640; 94799; 97530 GO; 97530 GP; 99202; 99281; 99285; C9113; J2060; J2250; J2405; J3010; J7040; J7050; J7120; P9016

== ENCOUNTER 2017-06-26 07:29 | Inpatient (IN) | payer OTHER, MEDICARE ==
[2017-06-26] VITALS (8 sets, daily range): BP systolic 108–126; BP diastolic 59–77
[~2017-06-26] VITALS: Ht 152.4 cm; Wt 61.8 kg
[~2017-06-26 07:29] MED LIST changes: +ASPIR-LOW81 MG PO; +COUMADIN3 MG PO
[2017-06-26 08:16] LABS: HEMATOCRIT 26.1 % (36.0-46.0); MCH 30.2 PG (29.0-34.0); MCHC 30.7 G/DL (30.0-36.0); MCV 98.5 FL (83-99); MEAN PLAT.VOLUME 13.3 uM^3 (9.5-12.4); NRBC (%) 37.3 /100 WBC (0-0); PLATELET COUNT 415 K/uL (156-360); RBC DIS.WIDTH-CV 26.6 % (11.8-14.6); RBC DIS.WIDTH-SD 89.9 % (39-53); RED BLOOD COUNT 2.65 M/uL (3.80-5.20); WHITE BLOOD COUNT 10.3 K/uL (4.1-10.2)
[2017-06-26 08:18] LABS: INTER. NORMALIZED RATIO 2.4
[2017-06-26 08:24] LABS: CHLORIDE 110 mEq/L (99-109); POTASSIUM 3.9 mEq/L (3.7-5.4); SODIUM 142 mEq/L (136-147)
[2017-06-26 08:25] LABS: GLUCOSE 93 mg/dL (70-99)
[2017-06-26 08:27] LABS: ANION GAP 10 MEQ/L (2-14)
[2017-06-26 08:29] LABS: GFR ESTIMATE (CALCULATED) > 59 mL/min/
[2017-06-26 08:30] LABS: UREA NITROGEN (BUN) 17 mg/dL (9-23)
[2017-06-26 08:31] LABS: PTT 30.2 SEC (25-37)
[2017-06-26 08:34] LABS: TROP-I INTERPRETATION POSITIVE
[2017-06-26 08:35] LABS: TROPONIN-I 0.88 ng/mL (0.0-0.30)
[2017-06-26 08:53] LABS: ABS NEUTROPHIL COUNT 8.2; ANISOCYTOSIS 2+; BAND NEUTROPHILS 1.3 % (0-8.0); BURR CELLS 1+; EOSINOPHIL ABS CT 0.1; EOSINOPHILS 1.2 % (0-5.0); INSTRUMENT ABS NEUTROPHIL CT 5.7 K/uL; LYMPHOCYTES 8.7 % (15.0-45.0); MACROCYTES 2+; MYELOCYTES 1.3 %; NUCLEATED RBC'S 61.3; OVALOCYTES 1+; PLAT.SUFFICIENCY INCREASED; POIKILOCYTOSIS 2+; POLYCHROMASIA 2+; SCHISTOCYTES 1+; SEG.NEUTROPHILS 78.7 % (46.0-76.0)
[2017-06-26 13:32] LABS: TROP-I INTERPRETATION POSITIVE
[2017-06-26 13:33] LABS: POINT-OF-CARE METER ID UU13113698
[2017-06-26 13:35] LABS: TROPONIN-I 1.37 ng/mL (0.0-0.30)
[2017-06-26 18:18] LABS: HEMATOCRIT 32.4 % (36.0-46.0)
[2017-06-26 18:39] LABS: TROP-I INTERPRETATION POSITIVE; TROPONIN-I 2.07 ng/mL (0.0-0.30)
[2017-06-26 19:58] LABS: INTERNAL CONTROL VALID? YES
[2017-06-26] MEDS ORDERED: COUMADIN6 MG PO (20:45)
[2017-06-26] MEDS ORDERED: FUROSEMIDE20 MG PO (20:46)
[2017-06-26] MEDS ORDERED: LOPRESSOR25 MG PO (20:47)
[2017-06-26] MEDS ORDERED: PREDNISONE20 MG PO (20:51)
[2017-06-26] MEDS ORDERED: DUONEB 2.5-0.5 M3 ML AEROSOL ×2 (20:54→20:56)
[2017-06-26] MEDS ORDERED: DULCOLAX10 MG PR (20:55)
[2017-06-26] MEDS ORDERED: FLEET MINERAL133 ML PR (20:57)
[2017-06-27] VITALS (16 sets, daily range): BP systolic 85–127; BP diastolic 52–85
[2017-06-27 05:32] LABS: HEMATOCRIT 30.7 % (36.0-46.0); MCH 31.7 PG (29.0-34.0); MCHC 32.2 G/DL (30.0-36.0); MCV 98.4 FL (83-99); MEAN PLAT.VOLUME 13.7 uM^3 (9.5-12.4); NRBC (%) 24.5 /100 WBC (0-0); PLATELET COUNT 346 K/uL (156-360); RBC DIS.WIDTH-CV 25.8 % (11.8-14.6); RBC DIS.WIDTH-SD 87.3 % (39-53); RED BLOOD COUNT 3.12 M/uL (3.80-5.20); WHITE BLOOD COUNT 19.1 K/uL (4.1-10.2)
[2017-06-27 06:13] LABS: ALKALINE PHOSPHATASE 138 IU/L (3-129); ANION GAP 11 MEQ/L (2-14); CHLORIDE 109 MEQ/L (99-109); GFR ESTIMATE (CALCULATED) > 59 mL/min/; GLUCOSE 105 mg/dL (70-99); SAMPLE HEMOLYSIS CHECK 0; SAMPLE ICTERIC CHECK 0; SAMPLE LIPEMIA CHECK 0; SODIUM 143 MEQ/L (136-147); TOTAL BILIRUBIN 1.5 MG/DL (0.0-1.0); UREA NITROGEN (BUN) 18 mg/dL (9-23)
[2017-06-27 14:19] LABS: PROTHROMBIN TIME 22.9 SEC (10.2-12.9)
[2017-06-27 15:10] LABS: BASE EXCESS 0.8 mEq/L (-3 to +3); BICARBONATE 23.6 mEq/L (22-26); CARBOXY HGB 1.8 % (0-5); COMMENTS - BLOOD GASES A+C+; METHEMOGLOBIN 1.8 % (0-1.5); O2 FLOW 15 L/MIN; PCO2 31 mm Hg (35-45); PO2 50 mm Hg (80-100); SITE LR; pH 7.49 (7.35-7.45)
[2017-06-27 15:11] LABS: DEVICE NON REBREATHER; FI02 100 %; TOTAL RESP RATE 30 resp/min
[2017-06-27 15:53] LABS: TROP-I INTERPRETATION POSITIVE; TROPONIN-I 2.46 ng/mL (0.0-0.30)
[2017-06-27 17:49] LABS: METH RESISTANT S AUREUS PCR POSITIVE (NEGATIVE)
[2017-06-27 17:55] LABS: PROBE CHECK PASS
[2017-06-27 18:43] LABS: ADD MIUA? YES; BILIRUBIN NEGATIVE; BLOOD SMALL; COLOR YELLOW ((YELLOW)); GLUCOSE (STRIP) NEGATIVE; KETONES NEGATIVE; LEUKOCYTES SMALL; NITRITE NEGATIVE; PROTEIN (STRIP) 30; SPECIFIC GRAVITY 1.018 (1.000-1.030); UROBILINOGEN 0.2 MG/DL (0.2-1.0)
[2017-06-27 19:12] LABS: BACTERIA RARE /HPF; EPITHELIAL CELLS RARE /HPF; HYALINE CASTS 30-40 /LPF; MUCUS 3+ /LPF; RED BLOOD CELLS TNTC /HPF (0-5); WHITE BLOOD CELLS 30-40 /HPF (0-5)
[2017-06-27 20:08] LABS: TROP-I INTERPRETATION POSITIVE; TROPONIN-I 1.98 ng/mL (0.0-0.30)
[2017-06-27 22:09] LABS: BASE EXCESS 0.1 mEq/L (-3 to +3); BICARBONATE 23.5 mEq/L (22-26); CARBOXY HGB 1.2 % (0-5); COMMENTS - BLOOD GASES C+A+; DEVICE NIV; FI02 100 %; METHEMOGLOBIN 1.9 % (0-1.5); MODE SPONT; PCO2 33 mm Hg (35-45); PEEP 7 CM/H20; PO2 231 mm Hg (80-100); PRES. SUPPORT 8 CM/H2O; SITE RR; TOTAL RESP RATE 16 resp/min; pH 7.46 (7.35-7.45)
[2017-06-28] VITALS (22 sets, daily range): BP systolic 84–115; BP diastolic 56–75
[2017-06-28 04:59] LABS: HEMATOCRIT 31.4 % (36.0-46.0); MCH 30.9 PG (29.0-34.0); MCHC 32.2 G/DL (30.0-36.0); NRBC (%) 31.6 /100 WBC (0-0); PLATELET COUNT 363 K/uL (156-360); RBC DIS.WIDTH-CV 25.2 % (11.8-14.6); RBC DIS.WIDTH-SD 82.2 % (39-53); RED BLOOD COUNT 3.27 M/uL (3.80-5.20); WHITE BLOOD COUNT 14.8 K/uL (4.1-10.2)
[2017-06-28 05:21] LABS: INTER. NORMALIZED RATIO 1.8; PROTHROMBIN TIME 20.4 SEC (10.2-12.9)
[2017-06-28 05:24] LABS: TROP-I INTERPRETATION POSITIVE
[2017-06-28 05:25] LABS: TROPONIN-I 1.16 ng/mL (0.0-0.30)
[2017-06-28 05:33] LABS: CHLORIDE 107 mEq/L (99-109); POTASSIUM 4.7 mEq/L (3.7-5.4); SODIUM 139 mEq/L (136-147)
[2017-06-28 05:34] LABS: MAGNESIUM 1.9 mg/dL (1.3-2.7); PTT 138.8 SEC (25-37)
[2017-06-28 05:36] LABS: GLUCOSE 137 mg/dL (70-99)
[2017-06-28 05:37] LABS: ANION GAP 11 MEQ/L (2-14)
[2017-06-28 05:38] LABS: TOTAL BILIRUBIN 2.3 mg/dL (0.0-1.0)
[2017-06-28 05:39] LABS: ALKALINE PHOSPHATASE 136 IU/L (3-129)
[2017-06-28 05:40] LABS: GFR ESTIMATE (CALCULATED) > 59 mL/min/
[2017-06-28 05:40] LABS: BASE EXCESS -1.4 mEq/L (-3 to +3); BICARBONATE 22.7 mEq/L (22-26); CARBOXY HGB 1.3 % (0-5); COMMENTS - BLOOD GASES C+A+; DEVICE NIV; FI02 55 %; METHEMOGLOBIN 1.8 % (0-1.5); MODE SPONT; PCO2 35 mm Hg (35-45); PEEP 5 CM/H20; PO2 104 mm Hg (80-100); PRES. SUPPORT 5 CM/H2O; SITE RR; TOTAL RESP RATE 11 resp/min; pH 7.42 (7.35-7.45)
[2017-06-28 05:41] LABS: UREA NITROGEN (BUN) 26 mg/dL (9-23)
[2017-06-28 21:02] LABS: INFLUENZA A VIRAL ANTIGEN NEGATIVE; INFLUENZA B VIRAL ANTIGEN NEGATIVE
[2017-06-29] VITALS (28 sets, daily range): BP systolic 0–149; BP diastolic 0–94
[2017-06-29 06:52] LABS: INTER. NORMALIZED RATIO 2.3; PROTHROMBIN TIME 26.6 SEC (10.2-12.9)
[2017-06-29 06:54] LABS: PTT 49.9 SEC (25-37)
[2017-06-29 07:06] LABS: HEMATOCRIT 35.5 % (36.0-46.0); MCHC 30.7 G/DL (30.0-36.0); NRBC (%) 26.4 /100 WBC (0-0); RBC DIS.WIDTH-CV 25.7 % (11.8-14.6); RBC DIS.WIDTH-SD 88.6 % (39-53); RED BLOOD COUNT 3.52 M/uL (3.80-5.20); WHITE BLOOD COUNT 16.2 K/uL (4.1-10.2)
[2017-06-29 07:16] LABS: TROP-I INTERPRETATION POSITIVE; TROPONIN-I 0.82 ng/mL (0.0-0.30)
[2017-06-29 07:42] LABS: MCV 100.9 FL (83-99)
[2017-06-29 08:20] LABS: ABS NEUTROPHIL COUNT 14.7; ACANTHOCYTES 1+; ANISOCYTOSIS 2+; ATYPICAL LYMPHOCYTE 3.7 %; BASOPHILS 0.9 %; BURR CELLS 1+; EOSINOPHIL ABS CT 0; HYPOCHROMASIA 1+; LYMPHOCYTES 0.9 % (15.0-45.0); MACROCYTES 2+; MICROCYTOSIS 1+; NUCLEATED RBC'S 49.5; OVALOCYTES 1+; PLAT.SUFFICIENCY INCREASED; PLATELET COUNT UNABLE TO REPORT K/uL (156-360); POIKILOCYTOSIS 3+; POLYCHROMASIA 2+; SEG.NEUTROPHILS 64.5 % (46.0-76.0); SPHEROCYTES 1+
[2017-06-29 08:31] LABS: ALKALINE PHOSPHATASE 118 IU/L (3-129); ANION GAP 17 MEQ/L (2-14); CHLORIDE 109 MEQ/L (99-109); GFR ESTIMATE (CALCULATED) > 59 mL/min/; GLUCOSE 223 mg/dL (70-99); MAGNESIUM 2.1 mg/dl (1.3-2.7); SAMPLE HEMOLYSIS CHECK 0; SAMPLE ICTERIC CHECK 0; SAMPLE LIPEMIA CHECK 0; SODIUM 139 MEQ/L (136-147); TOTAL BILIRUBIN 1.8 MG/DL (0.0-1.0); UREA NITROGEN (BUN) 43 mg/dL (9-23)
[2017-06-29 08:32] LABS: POTASSIUM 5.7 MEQ/L (3.7-5.4)
[2017-06-29 08:44] LABS: BAND NEUTROPHILS 26.2 % (0-8.0)
[2017-06-29 09:24] LABS: BASE EXCESS -2.3 mEq/L (-3 to +3); BICARBONATE 20.1 mEq/L (22-26); CARBOXY HGB 1.8 % (0-5); METHEMOGLOBIN 1.7 % (0-1.5); pH 7.48 (7.35-7.45)
[2017-06-29 09:25] LABS: COMMENTS - BLOOD GASES A+C+; DEVICE 980- PB; FI02 50 %; MECHANICAL RATE 20 resp/min; MODE AC; PCO2 27 mm Hg (35-45); PEEP 5 CM/H20; PO2 69 mm Hg (80-100); SITE LR; TIDAL VOLUME 650 ML; TOTAL RESP RATE 20 resp/min
[2017-06-29 18:24] LABS: POINT-OF-CARE METER ID UU14314082
[2017-06-29 19:08] LABS: ANION GAP 10 MEQ/L (2-14); CHLORIDE 106 MEQ/L (99-109); GFR ESTIMATE (CALCULATED) > 59 mL/min/; GLUCOSE 127 mg/dL (70-99); SAMPLE HEMOLYSIS CHECK 0; SAMPLE ICTERIC CHECK 0; SAMPLE LIPEMIA CHECK 0; SODIUM 136 MEQ/L (136-147); UREA NITROGEN (BUN) 39 mg/dL (9-23)
[2017-06-30] VITALS (17 sets, daily range): BP systolic 0–127; BP diastolic 0–80
[2017-06-30 01:46] LABS: PTT 66.7 SEC (25-37)
[2017-06-30 03:06] LABS: INTER. NORMALIZED RATIO 3.6; PROTHROMBIN TIME 41.9 SEC (10.2-12.9)
[2017-07-01] VITALS (9 sets, daily range): BP systolic 88–102; BP diastolic 49–70
[2017-07-01 05:33] LABS: INTER. NORMALIZED RATIO 2.5
[2017-07-01 05:51] LABS: PROTHROMBIN TIME 28.7 SEC (10.2-12.9); PTT 32.8 SEC (25-37)
[2017-07-02] VITALS: BP 95/75
[2017-07-02 04:00] VITALS: BP 100/61
[2017-07-02 08:00] VITALS: BP 94/57
[2017-07-02 10:00] VITALS: BP 107/62
[2017-07-02 12:00] VITALS: BP 92/59
== END 2017-07-02 15:50 | DRG 208 ==
LOC: EME 07:29 → 4EAST 09:17 → EDOF 09:17 → 4WEST 09:17 → ENRESERV 09:29 → 4EAST 10:20 → 4WEST 06-27 15:25 → ENRESERV 06-30 16:26 → CANRESERV 06-30 17:37 → ENRESERV 06-30 17:37 → CANRESERV 07-01 08:27 → 4WEST 07-02 15:50
PROVIDERS: Emergency Medicine; Family Medicine; Hospitalist; Internal Medicine; Internal Medicine Critical Care Medicine; Specialist
DX: I26.99 Other pulmonary embolism without acute cor pulmonale (principal); I47.1 Supraventricular tachycardia; J96.01 Acute respiratory failure with hypoxia; K55.21 Angiodysplasia of colon with hemorrhage; Z99.81 Dependence on supplemental oxygen; Z86.718 Personal history of other venous thrombosis and embolism; Z86.711 Personal history of pulmonary embolism; J44.1 Chronic obstructive pulmonary disease with (acute) exacerbation; I21.4 Non-ST elevation (NSTEMI) myocardial infarction; Z90.81 Acquired absence of spleen; Z96.642 Presence of left artificial hip joint; D46.9 Myelodysplastic syndrome, unspecified; Z87.891 Personal history of nicotine dependence; Q21.1 Atrial septal defect; Z66 Do not resuscitate; Z51.5 Encounter for palliative care; G25.81 Restless legs syndrome; I08.0 Rheumatic disorders of both mitral and aortic valves; I27.20 Pulmonary hypertension, unspecified; I50.810 Right heart failure, unspecified; I11.0 Hypertensive heart disease with heart failure; I69.354 Hemiplegia and hemiparesis following cerebral infarction affecting left non-dominant side; I69.392 Facial weakness following cerebral infarction; Z79.01 Long term (current) use of anticoagulants; J20.9 Acute bronchitis, unspecified; J44.0 Chronic obstructive pulmonary disease with (acute) lower respiratory infection; F32.9 Major depressive disorder, single episode, unspecified; F41.9 Anxiety disorder, unspecified; K21.9 Gastro-esophageal reflux disease without esophagitis; K74.60 Unspecified cirrhosis of liver; E78.5 Hyperlipidemia, unspecified; R40.20 Unspecified coma
CPT/HCPCS: 36600; 70450; 71010; 71275; 80048; 80048 91; 80053; 81003; 82272; 82803; 82948; 83605; 83735; 83880; 84100; 84484; 85014; 85018; 85025; 85027; 85379; 85610; 85651; 85730; 86850; 86900; 86901; 86920; 87070; 87077; 87086; 87147; 87186; 87205; 87502; 87641; 93005; 93306; 93970; 94002; 94003; 94640; 94640 76; 94799; 99202; 99281; 99284; C9113; J0153; J0692; J1265; J1940; J2060; J2270; J2405; J2704; J2930; J3370; J7050; J7120; P9016